=== PATIENT | female | born 1945 | race African-American/Black ===

== ENCOUNTER 2022-03-04 08:55 | Outpatient (CLI) | payer MEDICARE, BC, SELFPAY ==
[2022-03-04 11:02] LABS: Chloride* 104 mmol/L (96-114)
[2022-03-04 11:03] LABS: Potassium* 4.3 mmol/L (3.6-5.1); Sodium* 138 mmol/L (135-149)
[2022-03-04 11:05] LABS: Carbon Dioxide* 28 mmol/L (20-32); Cholesterol* 274 mg/dL (90-199); Creatinine* 0.9 mg/dL (0.5-1.5); Estimated Glomerular Filt Rate 66 ml/min
[2022-03-04 11:06] LABS: Blood Urea Nitrogen* 25 mg/dL (7-30); Calcium* 9.9 mg/dL (8.4-10.6); Glucose* 107 mg/dL (60-115); HDL Cholesterol* 87 mg/dL (>=50); LDL Cholesterol Calculated 164 mg/dL (<100); Triglycerides* 116 mg/dL (40-149)
[2022-03-04 11:22] LABS: Vitamin D 25 Hydroxy* 28 ng/mL (30-80)
== END 2022-03-04 08:56 | disposition home or self-care (01) ==
PROVIDERS: PCP Internal Medicine; Visit Provider Internal Medicine
DX: Z00.00 Encounter for general adult medical examination without abnormal findings (principal); I10 Essential (primary) hypertension; M85.80 Other specified disorders of bone density and structure, unspecified site; E78.5 Hyperlipidemia, unspecified; G47.00 Insomnia, unspecified
CPT/HCPCS: 80048; 80061; 82306

== ENCOUNTER 2022-03-27 08:11 | Outpatient (CLI) | payer MEDICARE, BC, SELFPAY ==
--- NOTE | 2022-03-27 08:00 | CRLHL7_ITS ---
For Patients: As a result of the Cures Act, medical imaging exams and procedure reports are released immediately into your electronic medical record. You may view this report before your referring provider. If you have questions, please contact your health care provider. Indication: Chronic sinusitis Technique: Performed without IV contrast Comparison: None available Findings: Frontal sinuses: Clear. Ethmoid sinuses: Clear. Maxillary sinuses: Clear. The maxillary sinus drainage pathways are patent on both sides. Sphenoid sinuses: Clear, including both sphenoethmoidal recesses. Nasal Cavity: Slight paradoxical turn of the left middle turbinates. Paradoxical turn of the right middle terminate. Slight leftward curvature of the nasal septum. No nasal polyps. Degenerative changes at the temporomandibular joints. Dense interhemispheric falx calcification incidentally noted. Impression: 1. Sinuses clear. 2. No nasal polyps. Please note that all CT scans at this facility use dose modulation, iterative reconstruction, and/or weight-based dosing when appropriate to reduce radiation dose to as low as reasonably achievable. Dictated by Edilberto Hanson MD @ 03/27/2022 12:04:54 PM (Electronically Signed)
== END 2022-03-27 08:12 | disposition home or self-care (01) ==
LOC: CT 08:13
PROVIDERS: PCP Internal Medicine; Visit Provider Otolaryngology
DX: J32.9 Chronic sinusitis, unspecified (principal)
CPT/HCPCS: 70486

== ENCOUNTER 2022-05-16 10:30 | Outpatient (CLI) | payer MEDICARE, BC, SELFPAY ==
[2022-05-16 11:59] LABS: Chloride* 101 mmol/L (96-114); Potassium* 4.4 mmol/L (3.6-5.1); Sodium* 138 mmol/L (135-149)
[2022-05-16 12:02] LABS: Blood Urea Nitrogen* 17 mg/dL (7-30); Carbon Dioxide* 29 mmol/L (20-32); Creatinine* 0.8 mg/dL (0.5-1.5); Estimated Glomerular Filt Rate 76 ml/min
[2022-05-16 12:03] LABS: Calcium* 10.3 mg/dL (8.4-10.6); Glucose* 111 mg/dL (60-115)
== END 2022-05-16 10:31 | disposition home or self-care (01) ==
LOC: NFLDREF 10:31
PROVIDERS: PCP Internal Medicine; Visit Provider Family Medicine
DX: Z01.818 Encounter for other preprocedural examination (principal)
CPT/HCPCS: 80048

== ENCOUNTER 2022-05-17 08:36 | Day surgery (SDC) | payer MEDICARE, BC, SELFPAY ==
[2022-05-16] MEDS: LACTATED RINGERS 1000 ML 1,000 ML 100 ML IV (09:15)
[2022-05-17] VITALS (13 sets, daily range): BP systolic 113–176; BP diastolic 75–98; PULSE 70–96; RESP 16; TEMP 36.3–36.7; O2SAT 96–100; BMI 28.3
[2022-05-17] MEDS: OXYMETAZOLINE 0.05% NASAL SPRAY 2 SPRAY NOSTRIL-B (09:15)
[2022-05-17] MEDS: SODIUM CHLORIDE 0.9 % (FLUSH) 10 ML SYRINGE IVF (09:15)
[2022-05-17] MEDS: COCAINE HCL 4 % 4 ML SOLUTION NOSTRIL-B (10:15)
[2022-05-17] MEDS: BUPIVACAINE 0.5%/EPINEPHRINE 0.9 MG (30.9 ML) INJECTION (10:20)
[2022-05-17] MEDS: MUPIROCIN 1 GM PACKET 1 APPLIC TOPICAL (10:21)
--- NOTE | 2022-05-17 10:33 | W.ANESCHARGE ---
Anesthesia Charges Start Date/Time Anesthesia Start Date: 05/17/22 Anesthesia Start Time: 10:00 Stop Date/Time Anesthesia Stop Date: 05/17/22 Anesthesia Stop Time: 10:35 Summary Emergency: No Extremes of Age: Over 70-CPT 21211
--- NOTE | 2022-05-17 10:34 | SUR.OPER ---
PT TRANSFERED TO OR1 FROM [facility]. PATIENT WAS ASSISTED TO TRANSFER TO OR TABLE. PATIENT WAS COVERED WITH WARM BLANKETS X 2
[2022-05-17] MEDS: fentaNYL 100 MCG/2 ML inj 50 MCG IVP ×2 (10:38→10:52)
--- NOTE | 2022-05-17 11:03 | W.ANESCHARGE ---
Anesthesia Charges Start Date/Time Anesthesia Start Date: 05/17/22 Anesthesia Start Time: 10:00 Stop Date/Time Anesthesia Stop Date: 05/17/22 Anesthesia Stop Time: 10:35 Summary Emergency: No Extremes of Age: Over 70-CPT 40450
[2022-05-17] MEDS: OXYCODONE 5 MG TABLET PO (11:42)
--- NOTE | 2022-05-17 12:22 | W.PM.ENTPROC ---
Procedure Note Date of procedure: 05/17/22 Procedure: Preoperative diagnosis nasal obstruction, nasal headache, septal deviation, left middle turbinate and right middle turbinate hypertrophy, inferior turbinate hypertrophy Postoperative diagnosis same Procedure nasal septoplasty, submucous partial resection inferior turbinates, endoscopic partial resection right middle turbinate Under general endotracheal anesthesia patient was prepped and draped in usual fashion and the nose injected and decongested. The septal deflection was left area 3 4. The 15 blade was used to make an incision in mucosa anterior to this and the mucosa overlying the deflection was elevated. The Ozark dissector was used to cut through the cartilage and the mucosa on the right side was elevated as well. A turbinate scissors was used to cut above and below the deflected portions of septal bone and cartilage this piece was then removed with the [place] forceps. It was then trimmed and returned to the intraseptal space. A stab incision was made in the anterior head of the right inferior turbinate a tunnel created with a Ozark dissector. A conservative anterior submucous resection was performed with Quiana forceps. The benita bone was outfractured and the turbinate Wand was used to cauterize intramurally and and along the inferior 10%. This was repeated on the left side in identical fashion. The left middle turbinate was incised with a 15 blade mucosa elevated with a Anjana dissector. The benita bone was then infractured and then the remainder of the turbinate crushed with the Tay forceps. A Merocel pack coated in Bactroban was placed overlying the septal incision on the left and in the middle meatus on the right. The patient procedure well was taken recovery in satisfactory condition. Blood loss was less than 20 mL. There were no complications. Surgeon: Roosevelt Springer MD
== END 2022-05-17 12:45 | disposition home or self-care (01) ==
PROVIDERS: PCP Internal Medicine; Visit Provider Otolaryngology
PROC: (CPT 30520; principal; 2022-05-17 10:00)
DX: J34.2 Deviated nasal septum (principal); J34.3 Hypertrophy of nasal turbinates; R51.9 Headache, unspecified; J34.89 Other specified disorders of nose and nasal sinuses
CPT/HCPCS: 30520; 30140; 30999; 00160; 99100; A9270; J0330; J1100; J2405; J2704; J3010; J7120

== ENCOUNTER 2022-06-03 15:22 | Outpatient (CLI) | payer MEDICARE, BC, SELFPAY ==
--- NOTE | 2022-06-03 15:20 | CRLHL7_ITS ---
For Patients: As a result of the Cures Act, medical imaging exams and procedure reports are released immediately into your electronic medical record. You may view this report before your referring provider. If you have questions, please contact your health care provider. BILATERAL SCREENING MAMMOGRAM WITH COMPUTER-AIDED DETECTION AND TOMOSYNTHESIS TECHNIQUE: CC and MLO views were obtained. These mammographic images have been obtained using full-field digital technique. These mammographic images were interpreted with the benefit of computer-aided detection. Breast Tomosynthesis was used in this interpretation. COMPARISON FILM: 11/09/2020, 09/05/2015, 09/30/2011. FINDINGS: There are scattered areas of fibroglandular density IMPRESSION: There is no radiographic evidence for malignancy. ASSESSMENT: BI-RADS Category 2: Benign RECOMMENDATION: A lay language report of this examination will be provided to the patient. Oni Rodriguez M.D. Diagnostic/Musculoskeletal Radiologist [email or web address] Transcribed: 5:09 p.raquel tellez/Dictated by: Oni Rodriguez MD @ 06/04/2022 8:13:00 AM (Electronically Signed)
== END 2022-06-03 15:23 | disposition home or self-care (01) ==
PROVIDERS: PCP Internal Medicine; Visit Provider Internal Medicine
DX: Z12.31 Encounter for screening mammogram for malignant neoplasm of breast (principal)
CPT/HCPCS: 77063; 77067

== ENCOUNTER 2023-04-22 07:43 | Outpatient (CLI) | payer MEDICARE, BC, SELFPAY | END 2023-04-22 07:44 | disposition home or self-care (01) | LOC: NFLDREF 04-23 01:43 | PROVIDERS: PCP Internal Medicine; Referring Provider Internal Medicine; Visit Provider Internal Medicine | DX: Z00.00 Encounter for general adult medical examination without abnormal findings (principal); E78.5 Hyperlipidemia, unspecified; I10 Essential (primary) hypertension; M85.80 Other specified disorders of bone density and structure, unspecified site; Z13.21 Encounter for screening for nutritional disorder; G47.00 Insomnia, unspecified; R41.3 Other amnesia | CPT/HCPCS: 80048; 80061; 82306 ==

== ENCOUNTER 2023-05-10 09:10 | Emergency (ER) | payer MEDICARE, BC, SELFPAY ==
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
[2023-05-10 09:20] VITALS: BP 125/82; PULSE 105; RESP 20; TEMP 36.1; O2SAT 99; BMI 25.8
[2023-05-10 09:31] VITALS: BP 136/86; PULSE 102; RESP 15; O2SAT 98
--- NOTE | 2023-05-10 09:31 | CRLHL7_ITS ---
For Patients: As a result of the Century Cures Act, medical imaging exams and procedure reports are released immediately into your electronic medical record. You may view this report before your referring provider. If you have questions, please contact your health care provider. INDICATION: Chest pain. SOB TECHNIQUE: Chest 2 views. COMPARISON: None. FINDINGS: Cardiovascular and mediastinum: Heart size and vasculature are normal in caliber and appearance. Lungs and pleural spaces: Lungs are clear. No sign of infiltrate. No sign of pleural effusion. No pneumothorax. Bones and soft tissues: Multilevel degenerative spondylosis. IMPRESSION: No evidence of acute cardiopulmonary process. Dictated by Sarwat Bui MD @ 05/10/2023 10:07:30 AM (Electronically Signed)
--- NOTE | 2023-05-10 09:46 | CRLHL7_ITS ---
For Patients: As a result of the Century Cures Act, medical imaging exams and procedure reports are released immediately into your electronic medical record. You may view this report before your referring provider. If you have questions, please contact your health care provider. INDICATION: Confusion. COMPARISON: None. TECHNIQUE: Noncontrast CT head. FINDINGS: Normal brain parenchymal morphology. No acute intracranial hemorrhage, acute infarct, focal edema, mass effect, or fracture. No midline shift. No abnormal ventricular dilatation. Calcification along the falx. Normal calvarium and skull base. Visualized paranasal sinuses mastoid air cells are clear. Normal orbits bilaterally. IMPRESSION: 1. No acute intracranial abnormality 2. Normal brain parenchymal morphology. Please note that all CT scans at this facility use dose modulation, iterative reconstruction, and/or weight-based dosing when appropriate to reduce radiation dose to as low as reasonably achievable. Dictated by Aleks Andrade MD @ 05/10/2023 10:43:42 AM (Electronically Signed)
[2023-05-10 09:50] LABS: Basophils Absolute Auto 0.03 K/uL (0.00-0.30); Basophils Percent Auto 0.5 % (0.0-3.0); Eosinophils Absolute Auto 0.15 K/uL (0.00-0.50); Eosinophils Percent Auto 2.5 % (0.0-7.0); Hematocrit 39.5 % (33.0-51.0); Hemoglobin* 12.9 gm/dL (12.0-16.0); Immature Granulocytes Abs Auto 0.02 K/uL (0.00-0.30); Immature Granulocytes Pct Auto 0.3 %; Lymphocytes Absolute Auto 1.74 K/uL (0.90-2.90); Lymphocytes Percent Auto 29.5 % (20-44); Mean Corpuscular HGB Conc 33 gm/dL (32-36); Mean Corpuscular Hemoglobin 29 pg (26-34); Mean Corpuscular Volume 87 fL (80-100); Monocytes Percent Auto 6.5 % (0.0-11.0); Neutrophils Absolute Auto 3.57 K/uL (1.7-7.0); Neutrophils Percent Auto 60.7 % (42.0-72.0); Platelet Count* 345 K/uL (140-440); RDW Coefficient of Variation % 13.4 % (11.5-15.5); Red Blood Count 4.52 m/uL (4.00-5.20); White Blood Count* 5.89 K/uL (4.50-11.00)
[2023-05-10 09:56] LABS: Slide Review Reflex No
[2023-05-10] MEDS: LACTATED RINGERS 1000 ML 1,000 ML IV (09:58)
[2023-05-10 10:00] VITALS: BP 137/84; PULSE 83; RESP 12; O2SAT 99
[2023-05-10 10:02] LABS: Albumin* 4.4 g/dL (3.3-5.0); Chloride* 104 mmol/L (96-114); Sodium* 140 mmol/L (135-149)
[2023-05-10 10:03] LABS: Potassium* 3.6 mmol/L (3.6-5.1)
[2023-05-10 10:05] LABS: Alanine Aminotransferase* 18 U/L (4-35); Alkaline Phosphatase* 109 U/L (40-150); Anion Gap 13 mEq/L (7-15); Aspartate Amino Transferase* 26 U/L (12-35); Bilirubin Total* 0.5 mg/dL (0.1-1.5); Blood Urea Nitrogen* 29 mg/dL (7-30); Carbon Dioxide* 23 mmol/L (20-32); Estimated Glomerular Filt Rate 58 ml/min; Glucose* 115 mg/dL (60-115)
[2023-05-10 10:06] LABS: Calcium* 10.2 mg/dL (8.4-10.6); Magnesium* 2.1 mg/dL (1.5-2.6)
[2023-05-10 10:07] LABS: D Dimer Quantitative* 0.92 ug/ml (0.00-0.50)
--- NOTE | 2023-05-10 10:10 | ED.NURSE ---
patient is having trouble with word finding and started today around 0800. Informed Dr. Mustafa of this and agreed patient expressed feeling foggy and feeling warm, sweaty, and dizziness. visitor in the room said this is new for patient.
--- NOTE | 2023-05-10 10:18 | CRLHL7_ITS ---
For Patients: As a result of the 21st Century Cures Act, medical imaging exams and procedure reports are released immediately into your electronic medical record. You may view this report before your referring provider. If you have questions, please contact your health care provider. INDICATION: SOB,CHEST PAIN, ELEVAED DDIMER HX OF BLOOD CLOT IN HER 20S TECHNIQUE: CT chest PE was acquired with 95 cc Isovue 370 IV contrast. COMPARISON: None. FINDINGS: Heart and vasculature: Contrast opacification of the pulmonary arterial tree is adequate. No sign of pulmonary embolism. Heart size is normal. Thoracic aorta and pulmonary artery are normal in caliber. Mild coronary artery and thoracic aortic calcifications. Lungs and pleural: No suspicious nodules or infiltrates. Mild centrilobular pulmonary emphysema. No pleural effusions, pleural thickening, or pneumothorax. Lymph nodes/mediastinum: No mediastinal, hilar, or axillary adenopathy. Calcified mediastinal lymph nodes. Chest wall: No masses. Upper abdomen: No acute or significant findings. Sequela calcified granulomata within the spleen and liver. Bones: Mild multilevel degenerative spondylosis without acute fracture or aggressive osseous lesion. IMPRESSION: 1. No evidence of acute cardiopulmonary process. No evidence of pulmonary embolus. 2. Mild pulmonary emphysema. 3. Mild coronary artery and thoracic aortic calcifications. Please note that all CT scans at this facility use dose modulation, iterative reconstruction, and/or weight-based dosing when appropriate to reduce radiation dose to as low as reasonably achievable. Dictated by Sawrat Bui MD @ 05/10/2023 11:01:59 AM (Electronically Signed)
[2023-05-10 10:19] LABS: Troponin I* < 0.01 ng/mL (0.01-0.04)
[2023-05-10 10:32] LABS: PCR FLU A Negative PCR FLU A (Negative); PCR FLU B Negative PCR FLU B (Negative); PCR RSV Negative PCR RSV (Negative); SARS PCR* Negative SARS-CoV-2 (Negative)
[2023-05-10 11:15] VITALS: BP 151/84; PULSE 79; RESP 14; O2SAT 100
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
[2023-05-10 11:30] VITALS: BP 146/89; PULSE 82; RESP 16; O2SAT 99
== END 2023-05-10 11:40 | disposition home or self-care (01) ==
PROVIDERS: Emergency Provider Student in an Organized Health Care Education/Training Program; PCP Internal Medicine
DX: M54.12 Radiculopathy, cervical region (principal); E86.0 Dehydration
CPT/HCPCS: 36415; 70450; 71046; 71275; 80053; 81001; 83735; 84484; 85025; 85379; 87631; 93005; 96360; 99283; 99284; 99285; J7120; Q9967

== ENCOUNTER 2023-09-01 10:06 | Outpatient (CLI) | payer MEDICARE, BC, SELFPAY ==
--- OUTSIDE RECORDS SUMMARY | 2023-09-01 10:12 | XMS_ITS | Clinical Summary ---
Author Name Unknown Organization [facility] Address [address] [place] [address] Care Team Providers Care Ed Teacher Name Role Phone Elsewhere, Pcp Primary Care Provider Unavailabl e Source Comments Patient records contain information from all sites at [facility]. For routine questions regarding patient records, call [phone] during business hours, M-F 8:00 AM - 5:00 PM Central Time. Record requests for emergency care only can be directed to [phone] at any time.[facility] Allergies No known active allergies Medications Medication Sig Dispensed Refills Start Date End Date Status zolpidem (AMBIEN) 5 mg tablet Take 5 mg by mouth as needed. 0 07/28/2020 Active lisinopril-hydroCHLORO thiazide (PRINZIDE,ZESTORETIC) 20-12.5 mg per tablet Take 1 tablet by mouth daily. 0 07/29/2020 Active ciprofloxacin (CIPRO) 500 mg tablet Take 500 mg by mouth as needed. 0 07/28/2020 Active atorvastatin (LIPITOR) 20 mg tablet Take 20 mg by mouth daily. 0 07/29/2020 Active UNABLE TO FIND 2 (two) times a day. 0 03/01/2016 Active calcium carbonate-vitamin D3 1,250 mg (500 mg calcium)-5 mcg (200 Unit) per tablet Take 1 tablet by mouth daily with breakfast. 0 Active cetirizine (ZyrTEC) 10 mg tablet Take 10 mg by mouth as needed. 0 03/21/2022 Active Active Problems Problem Noted Date Diagnosed Date Polyp Colon 09/12/2020 Embolus Pulmonary Personal History 02/19/2016 Immunizations Name Administration Dates Next Due HZV (ZOSTAVAX) 10/07/2011 HepA / HepB 04/12/2003,03/15/2003 HepA Adult 06/21/2010 HepB Adult 06/21/2010 IPV 03/15/2003,03/12/2003 Influenza Split 07/10/2016, 5,05/02/2014,2012 MPSV4 06/21/2010,04/12/2003 PCV13 07/10/2016 PPSV23 09/30/2011 SARS-COV-2 (COVID-19) - PFIZ ER (12 years or older) 09/29/2020 Tdap 05/11/2012,06/21/2010 TyVi (inj) 10/31/2016,06/25/2013,06/21/2010 Typhoid, Unspecified 03/15/2003 YF 06/25/2013,03/15/2003 Family History Medical History Relation Name Comments Alcohol abuse Brother Ammon Welch Liver disease Brother Ammon Welch Depression Daughter Hannah Latif Other cancer Daughter Hannah Latif Abdominal Rapto Sarcoma Psychiatric Daughter Hannah Latif Bi-Polar a nd granddaughters Bi-polar Suicide Attempts Daughter Hannah Latif Grands on Hossein Latif Liver disease Father Elmer Welch Arthritis Maternal Grandfather Tiffanie Hernandez Depression Maternal Grandmother Tiffanie Pierre Many family members suffer with chronic depression Glaucoma Maternal Grandmother Tiffanie Pierre Liver disease Mother Isatu Garner Lung cancer Mother Isatu Garner Liver Coronary artery disease Mother's Brother 1 [facility] Alcohol abuse Mother's Brother 2 Pierresteve Mary Coronary artery disease Paternal Grandfather Ron Hernandez Depression Sister Malinda Welch Psychiatric Sister Malinda Welch Bi-Polar/ Paran oid Schiphrenia Suicide Attempts Sister Malidna Welch Macular degeneration Neg Hx Relation Name Status Comments Brother Ammon Welch Daughter Hannah Latif Father Elmer Welch Maternal Grandfather Tiffanie Hernandez Maternal Grandmother Tiffanie Ignacio Mother Isatu Garner Mother's Brother 1 Wheatleymilly Hernandez Mother's Brother 2 Edsteve Hernandez Paternal Grandfather Pierresteve Mary Sister Malinda Welch Social History Tobacco Use Types Packs/Day Years Used Date Smoking Tobacco: Never Passive Smoke Exposure: Never Smokeless Tobacco: Never Alcohol Use Standard Drinks/Week Comments Yes 3 (1 standard drink = 0.6 oz pur e alcohol) 2 wine per week Humiliation, Afraid, Rape, and Kick questionnair e Answer Date Recorded Fear of Current or Ex-Partner Not on file Within the last year, have y ou been humiliated or emotionally abused in other ways by your partner or ex-partner? No 04/04/2022 Within the last year, have y ou been kicked, hit, slapped, or otherwise physically hurt by your partner or ex-partner? No 04/04/2022 Within the last year, have y ou been raped or forced to have any kind of sexual activity by your partner or ex-partner? No 04/04/2022 Social Connection and Isolat ion Panel [NHANES] Answer Date Recorded In a typical week, how many times do you talk on the phone with family, friends, or neighbors? More than three times a week 04/04/2022 How often do you get togethe r with friends or relatives? More than three times a week 04/04/2022 How often do you attend chur or jew services? 1 to 4 times per year 04/04/2022 Do you belong to any clubs o r organizations such as methodist groups, unions, fraternal or athletic groups, or school groups? No 04/04/2022 How often do you attend meet ings of the clubs or organizations you belong to? Never 04/04/2022 Are you , , di vorced, , never , or living with a partner? 04/04/2022 AUDIT-C Answer Date Recorded Q1: How often do you have a drink containing alc ohol? 2-4 times a month 04/04/2022 Q2: How many drinks containi ng alcohol do you have on a typical day when you are drinking? 1 or 2 04/04/2022 Q3: How often do you have si x or more drinks on one occasion? Never 04/04/2022 Overall Financial Resource Strain (CARDIA) Answe r Date Recorded How hard is it for you to pa y for the very basics like food, housing, medical care, and heating? Not very hard 04/04/2022 PHQ-2 Answer Date Recorded PHQ-2 Score 2 04/10/2022 [facility] - Occupational Stress Questionnaire Answer Date Recorded Do you feel stress - tense, restless, nervous, or anxious, or unable to sleep at night because your mind is troubled all the time - these days? Rather much 08/18/2020 Exercise Vital Sign Answer Date Recorde d On average, how many days pe r week do you engage in moderate to strenuous exercise (like a brisk walk)? 4 days 04/04/2022 On average, how many minutes do you engage in exercise at this level? 120 min 04/04/2022 Hunger Vital Sign Answer Date Recorded Within the past 12 months, y ou worried that your food would run out before you got the money to buy more. Never true 04/04/20 Within the past 12 months, t he food you bought just didn't last and you didn't have money to get more. Never true 04/04/2022 PRAPARE - Transportation Answer Date Re corded In the past 12 months, has l ack of transportation kept you from medical appointments or from getting medications? No 03/12 In the past 12 months, has l ack of transportation kept you from meetings, work, or from getting things needed for daily living? No 04/04/2022 Housing Stability Vital Sign Answer Chuy e Recorded In the last 12 months, was t here a time when you were not able to pay the mortgage or rent on time? No 04/04/2022 In the last 12 months, how many places have you lived? 1 04/04/2022 In the last 12 months, was t here a time when you did not have a steady place to sleep or slept in a residential (including now)? No 04/04/2022 Depression Answer Date Recor ded PHQ-9 Total Score (max 27) 9 04/10 Nutrition Answer Date Recorded Nutrition: EVOO Fat Source Yes 08/26 Nutrition: Servings of Fruits/Vegetables per Day Not on file 08/26/2023 Dental Answer Date Recorded Dental: Regular Dentist Yes 04/04/20 Employment Answer Date Recorded Employment status Employed and actively working without restrictions 04/04/2022 Education Answer Date Recorded What is the highest level of school you have completed or the highest degree you have received? Master's degree (e.g., MA, MS, Rian, MEd, KILN PULLER, RONALD) 04/04/2022 Sex and Gender Information Value Date Recorded Sex Assigned at Female 04/08/2021 11:57 PM CDT Gender Identity Not on file Sexual Orientation Not on file Last Filed Vital Signs Vital Sign Reading Time Taken Comments Blood Pressure 161/84 09/15/2020 3:50 PM REPTILE FARMER Pulse 81 09/15/2020 3:50 PM REPTILE FARMER Temperature 36.2 ??C (97.2 ??F) 04/10/2022 9:04 AM CD T Respiratory Rate 14 09/15/2020 3:50 PM REPTILE FARMER Oxygen Saturation 96% 09/15/2020 3:50 PM REPTILE FARMER Inhaled Oxygen Concentration - - Weight 80.4 kg (177 lb 4 oz) 04/10/2022 9:04 AM CDT Height 170.4 cm (5' 7.09) 04/10/2022 9:04 AM CD T Body Mass Index 27.69 04/10/2022 9:04 AM CDT Plan of Treatment Health Maintenance Due Date Last Done Comments Zoster Vaccines (2 of 3) 12/02/2011 10/07/2011 Creatinine Level (Kidney Fun ction Test) 09/12/2021 09/12/2020, 03/01/2016, 02/29/2016, Additional history exists Potassium Level 09/12/2021 09/12/2020, 02/09, 02/29/2016, Additional history exists Sodium Level 09/12/2021 09/12/2020, 02/09, 02/29/2016, Additional history exists COVID-19 Vaccine (2022-2 4 season) 2023 04/27/2022, 11/13/2021, 11/13/2021, Additional history exists Depression Screening (Annual PHQ-2) 08/11/2023 Fall Risk Screen (Annual) 08/11/2023 DTaP,Tdap,and Td Vaccines (4 - Td or Tdap) 04/29/2033 04/29/2023, 05/11/2012, 06/21/2010 Hepatitis A Vaccines Completed 06/21/2010, 04/12/2003, 03/15/2003 Mammogram Discontinued 09/05/2015, 09/12, 09/17/2010, Additional history exists Pneumococcal vaccine (65+ years) Completed 07/10/20 16, 09/30/2011 Hepatitis B Vaccines Completed 10/25/2016, 06/21/2010, 04/12/2003, Additional history exists Colonoscopy Discontinued 09/15/2020, 12/2020, 04/26/2014 (Performed elsewhere), Additional history exists Colonoscopy Discontinued 09/15/2020, 12/2020, 04/26/2014 (Performed elsewhere), Additional history exists Colorectal Cancer Screening Discontinued Colorectal Cancer Surveillance Discontinued Influenza Vaccine Completed 04/15/2023, , 05/05/2021, Additional history exists CT Colonography Discontinued CT Colonography Discontinued Cologuard Discontinued FIT Discontinued Medical Devices Implanted Type Area Director Of Regional Sales Device Identifier Shelf Expiration Date Model / Serial / Lot Sigma Post Stab.W Lug Fem Sz 4 Rt - Juarez [id number] Implanted:Qty: 1 on 02/27/2016 Knee Implant Other/Legacy - See Implant Description [employer] Description:Device Manufactu rer - [employer]. Body Location - Other. Right. Device Status Text - KNEE [id number]. Lens Sergey 24.0d X 6.0mm - Juarez [id number] Implanted:Qty: 1 on 12/03/2013 Ocular Lens Right: Other/Legacy - See Implant Description [employer] Description:Device Manufactu rer - [employer]. Body Location - Right. Device Status Text - [id number]. Lens Sergey 24.0d X 6.0mm - Juarez [id number] Implanted:Qty: 1 on 12/31/2013 Ocular Lens Left: Other/Legacy - See Implant Description [employer] Description:Device Manufactu rer - [employer]. Body Location - Left. Device Status Text - [id number]. Care Teams Ed Teacher Relationship Specialty Start Date End Date Elsewhere, Pcp PCP - General Internal Medicine 01/28/23
--- OUTSIDE RECORDS SUMMARY | 2023-09-01 10:12 | XMS_ITS | Referral Summary ---
Author Name Unknown Organization [facility] Address [address] [place] [address] Care Team Providers Care Title Searcher Name Role Phone Elsewhere, Pcp Primary Care Provider Unavailabl e Source Comments Patient records contain information from all sites at [facility]. For routine questions regarding patient records, call [phone] during business hours, M-F 8:00 AM - 5:00 PM Central Time. Record requests for emergency care only can be directed to [phone] at any time.[facility] Allergies No known active allergies Medications Medication [...] (inj) 10/31/2016,06/25/2013,06/21/2010 Typhoid, Unspecified 03/15/2003 YF 06/25/2013,03/15/2003 Social History Tobacco Use Types Packs/Day Years [...] week 04/04/2022 How often do you attend [facility] or jew services? 1 to 4 times per year 04/04/2022 Do you belong to any clubs o r organizations such as jainism groups, unions, fraternal or athletic groups, or [...] Answer Date Recorded PHQ-2 Score 2 04/10/2022 [facility] - Occupational Stress [...] money to buy more. Never true 04/04/20 22 Within the past 12 months, t he [...] place to sleep or slept in a custodial (including now)? No 04/04/2022 Depression Answer Date [...] Master's degree (e.g., MA, MS, Rian, MEd, MACHINIST WOOD, RONALD) 04/04/2022 Sex and Gender Information Value Date Recorded Sex Assigned at Female 04/08/2021 11:57 PM CDT Gender Identity Not on file Sexual Orientation Not on file Last Filed Vital Signs Vital Sign Reading Time Taken Comments Blood Pressure 161/84 09/15/2020 3:50 PM VENEER GLUE SPREADER Pulse 81 09/15/2020 3:50 PM VENEER GLUE SPREADER Temperature 36.2 ??C (97.2 ??F) 04/10/2022 9:04 AM CD T Respiratory Rate 14 09/15/2020 3:50 PM VENEER GLUE SPREADER Oxygen Saturation 96% 09/15/2020 3:50 PM VENEER GLUE SPREADER Inhaled Oxygen Concentration - - Weight 80.4 kg (177 lb 4 oz) 04/10/2022 9:04 AM CDT Height 170.4 cm (5' 7.09) 04/10/2022 9:04 AM CD T Body Mass Index 27.69 04/10/2022 9:04 AM CDT Plan of Treatment Not on file Medical Devices Implanted Type Area Ecommerce Marketing Specialist Device Identifier Shelf Expiration Date Model / Serial / Lot Sigma Post Stab.W Lug Fem Sz 4 Rt - Juarez [id number] Implanted:Qty: 1 on 02/27/2016 Knee Implant Other/Legacy - See Implant Description [employer] Description:Device Manufactu rer - [employer]. Body Location - Other. Right. Device Status Text - KNEE [id number]. Lens Sergey 24.0d X 6.0mm - Juarez [id number] Implanted:Qty: 1 on 12/03/2013 Ocular Lens Right: Other/Legacy - See Implant Description [employer] Description:Device Manufactu rer - [employer]. Body Location - Right. Device Status Text - [id number]. Lens Sergey 24.0d X 6.0mm - Juarez [id number] Implanted:Qty: 1 on 12/31/2013 Ocular Lens Left: Other/Legacy - See Implant Description [employer] Description:Device Manufactu rer - [employer]. Body Location - Left. Device Status Text - [id number]. Care Teams Title Searcher Relationship Specialty Start Date End Date Elsewhere, Pcp PCP - General Internal Medicine 01/28/23
--- OUTSIDE RECORDS SUMMARY | 2023-09-01 10:13 | XMS_ITS | Encounter Summary ---
Author Name Unknown Organization [facility] Address [address] [place] [id number] Care Team Providers Care Social Work Nurse Name Role Phone Elsewhere, Pcp Primary Care Provider Unavailabl e Encounter Details Date Type Department Care Team (Late st Contact Info) Description 11/12/2013 Historical Ophthalmology RST OPH Chidi Huerta M.D. [address] [place] [phone] Social History Tobacco Use Types Packs/Day Years Used Date Smoking Tobacco: Never Assessed Sex and Gender Information Value Date Recorded Sex Assigned at Female 04/08/2021 11:57 PM CDT Gender Identity Not on file Sexual Orientation Not on file documented as of this encounter Progress Notes * Chidi Huerta M.D. - 11/12/2013 12:55 PM CDT Eye Subsequent Visit HISTORY OF PRESENT ILLNESS here for IOL scan CDM Reports - EYESV Id: [id number] Status: Fnl documented in this encounter Plan of Treatment Not on file documented as of this encounter Visit Diagnoses Not on filedocumented in this encounter Additional Health Concerns Infection Onset Date Last Indicated Resolved Time COVID19 Pending 09/12/2020 09/12/2020 09/12/2020 7 :16 PM CORE DRILL OPERATOR COVID19 Pending 04/17/2022 04/17/2022 04/17/2022 6 :46 PM CDT Assessment Noted Time PHQ-9 Depression Total Score: 7 09/07/19 10 7:05 AM CORE DRILL OPERATOR documented as of this encounter Care Teams Social Work Nurse Relationship Specialty Start Date End Date Elsewhere, Pcp PCP - General Internal Medicine 01/28/23 documented as of this encounter
--- OUTSIDE RECORDS SUMMARY | 2023-09-01 10:13 | XMS_ITS | Encounter Summary ---
Author Name Unknown Organization [facility] Address [address] [place] [address] Care Team Providers Care Ritual Circumciser Name Role Phone Elsewhere, Pcp Primary Care Provider Unavailabl e Encounter Details Date Type Department Care Team (Late st Contact Info) Description 11/08/2013 Historical Ophthalmology RST O[facility] Chidi Huerta M.D. [address] [place] [phone] Social History Tobacco Use Types Packs/Day Years Used Date Smoking Tobacco: Never Assessed Sex and Gender Information Value Date Recorded Sex Assigned at Female 04/08/2021 11:57 PM CDT Gender Identity Not on file Sexual Orientation Not on file documented as of this encounter Progress Notes * Chidi Huerta M.D. - 11/08/2013 8:14 AM CDT Eye General CHIEF COMPLAINT Tearing ; both eyes; constant x one year; cloudy vision at night ; both eyes; noted x 1-2 years HISTORY OF PRESENT ILLNESS Tearing ; both eyes; constant x one year. Cloudy vision at night ; both eyes; noted x 1-2 years. Episodes of conjunctival hemorrhage ; either eye; noted x three years. May note soreness (left eye) currently. Denies flashes (both eyes). 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 States intermittent headaches; she may relate to sinus. IMPRESSION / REPORT / PLAN #1 cataracts visually significant. RBA RIGHT cataract surgery discussed, pt wishes to proceed. get iols, target plano. #2 refractive error rx given #3 history subconjunctival hemorrhages no rx DIAGNOSIS #1 cataracts #2 refractive error #3 history subconjunctival hemorrhages CDM Reports - EYEGEN Id: [id number] Status: Fnl documented in this encounter Plan of Treatment Not on file documented as of this encounter Visit Diagnoses Not on filedocumented in this encounter Additional Health Concerns Infection Onset Date Last Indicated Resolved Time COVID19 Pending 09/12/2020 09/12/2020 09/12/2020 7 :16 PM TARE WEIGHER COVID19 Pending 04/17/2022 04/17/2022 04/17/2022 6 :46 PM CDT Assessment Noted Time PHQ-9 Depression Total Score: 7 09/07/19 10 7:05 AM TARE WEIGHER documented as of this encounter Care Teams Ritual Circumciser Relationship Specialty Start Date End Date Elsewhere, Pcp PCP - General Internal Medicine 01/28/23 documented as of this encounter
--- OUTSIDE RECORDS SUMMARY | 2023-09-01 10:13 | XMS_ITS | Encounter Summary ---
Author Name Unknown Organization [facility] Address [address] [place] [id number] Care Team Providers Care Household Assistant Name Role Phone Elsewhere, Pcp Primary Care Provider Unavailabl e Reason for Visit * Reason Onset Date Comments Pre-visit Intake 01/28/2023 Encounter Details Date Type Department Care Team (Latest Contact Info) Description 01/28/2023 9:15 AM CDT Clinical Communication Virtual Review in [place], [place] [address] [place], [place] [phone] Pre-visit Intake Social History Tobacco Use Types Packs/Day Years [...] 04/04/2022 How often do you attend chur ch or anglican services? 1 to 4 times per year 04/04/2022 Do you belong to any clubs o r organizations such as congregational groups, unions, fraternal or athletic groups, or [...] Answer Date Recorded PHQ-2 Score 2 04/10/2022 [facility] - Occupational Stress [...] place to sleep or slept in a usp (including now)? No 04/04/2022 Depression Answer Date Recor ded PHQ-9 Total Score (max 27) 9 04/10 Nutrition Answer Date Recorded Nutrition: EVOO Fat Source Yes 08/18 On average, how many serving s of fruits and vegetables do you eat per day (serving size is equal to 1 cup or approximately the size of a tennis ball)? 4-5 08/18/2020 Dental Answer Date Recorded Dental: Regular Dentist Yes 04/04/20 Employment Answer Date Recorded Employment status Employed and actively working without restrictions 04/04/2022 Education Answer Date Recorded What is the highest level of school you have completed or the highest degree you have received? Master's degree (e.g., MA, MS, Rian, MEd, APPAREL FASHION DESIGNER, RONALD) 04/04/2022 Sex and Gender Information Value Date Recorded Sex Assigned at Female 04/08/2021 11:57 PM CDT Gender Identity Not on file Sexual Orientation Not on file documented as of this encounter Plan of Treatment Not on file documented as of this encounter Visit Diagnoses Not on filedocumented in this encounter Additional Health Concerns Assessment Noted Time PHQ-9 Depression Total Score: 9 04/10/20 22 11:39 AM CDT documented as of this encounter Care Teams Household Assistant Relationship Specialty Start Date End Date Elsewhere, Pcp PCP - General Internal Medicine 01/28/23 documented as of this encounter
--- OUTSIDE RECORDS SUMMARY | 2023-09-01 10:13 | XMS_ITS | Encounter Summary ---
Author Name Unknown Organization [facility] Address [address] [place] [address] Care Team Providers Care Straight Knife Cutter Machine Name Role Phone Elsewhere, Pcp Primary Care Provider Unavailabl e Encounter Details Date Type Department Care Team (Late st Contact Info) Description 11/08/2013 Historical Ophthalmology RST OPH [place] [address] [place] [phone] Social History Tobacco Use Types Packs/Day Years Used Date Smoking Tobacco: Never Assessed Sex and Gender Information Value Date Recorded Sex Assigned at Female 04/08/2021 11:57 PM CDT Gender Identity Not on file Sexual Orientation Not on file documented as of this encounter Progress Notes * Lay Wells - 11/08/2013 9:27 AM CDT Eye Subsequent Visit HISTORY OF PRESENT ILLNESS Cataract surgery right eye December [address] Huerta CDM Reports - EYESV Id: [id number] Status: Fnl documented in this encounter Plan of Treatment Not on file documented as of this encounter Visit Diagnoses Not on filedocumented in this encounter Additional Health Concerns Infection Onset Date Last Indicated Resolved Time COVID19 Pending 09/12/2020 09/12/2020 09/12/2020 7 :16 PM MITER GRINDER OPERATOR COVID19 Pending 04/17/2022 04/17/2022 04/17/2022 6 :46 PM CDT Assessment Noted Time PHQ-9 Depression Total Score: 7 09/07/19 10 7:05 AM MITER GRINDER OPERATOR documented as of this encounter Care Teams Straight Knife Cutter Machine Relationship Specialty Start Date End Date Elsewhere, Pcp PCP - General Internal Medicine 01/28/23 documented as of this encounter
--- OUTSIDE RECORDS SUMMARY | 2023-09-01 10:13 | XMS_ITS | Encounter Summary ---
Author Name Unknown Organization [facility] Address [address] [place] [address] Care Team Providers Care Consignee Name Role Phone Elsewhere, Pcp Primary Care Provider Unavailabl e Encounter Details Date Type Department Care Team (Late st Contact Info) Description 12/29/2013 Historical Ophthalmology RST OPH Jeremiah Tate, C.O.A. [address] [place] [phone] Social History Tobacco Use Types Packs/Day Years Used Date Smoking Tobacco: Never Assessed Sex and Gender Information Value Date Recorded Sex Assigned at Female 04/08/2021 11:57 PM CDT Gender Identity Not on file Sexual Orientation Not on file documented as of this encounter Progress Notes * Jeremiah Tate, C.O.A. - 12/29/2013 9:30 AM CDT Eye Subsequent Visit HISTORY OF PRESENT ILLNESS Listing for cataract surgery, left eye on 12/31/[address] Huerta. Patient will call for report time. cell Home: CDM Reports - EYESV Id: [id number] Status: Fnl documented in this encounter Plan of Treatment Not on file documented as of this encounter Visit Diagnoses Not on filedocumented in this encounter Additional Health Concerns Infection Onset Date Last Indicated Resolved Time COVID19 Pending 09/12/2020 09/12/2020 09/12/2020 7 :16 PM BIOINFORMATICS ENGINEER COVID19 Pending 04/17/2022 04/17/2022 04/17/2022 6 :46 PM CDT Assessment Noted Time PHQ-9 Depression Total Score: 7 09/07/19 10 7:05 AM BIOINFORMATICS ENGINEER documented as of this encounter Care Teams Consignee Relationship Specialty Start Date End Date Elsewhere, Pcp PCP - General Internal Medicine 01/28/23 documented as of this encounter
--- OUTSIDE RECORDS SUMMARY | 2023-09-01 10:13 | XMS_ITS | Clinical Summary ---
Author Name Unknown Organization [facility] Address [place], [place] [address] Care Team Providers Care Reed Dipper Name Role Phone CadillacRaymarcus Primary Care Provider Unavail able Allergies Active Allergy Reactions Criticality Noted Date Comments Penicillins 10/13/2010 Medications Medication Sig Dispensed Refills Start Date End Date Status ibuprofen (ADVIL; MOTRIN) 600 mg tablet Take 1 tablet by mouth 4 times daily if needed. Maximum of 3200 mg in 24 hours. 30 tablet 0 03/25/2014 Active zolpidem (AMBIEN) 5 mg tablet Take 1 tablet by mouth at bedtime if needed for Sleep. 30 tablet 0 03/25/2014 Active HYDROcodone-acetam inophen, 5-325 mg, (NORCO) per tablet Take 1-2 tablets by mouth every 4 hours if needed for Pain. Max acetaminophen dose: 4000mg in 24 hrs. 30 tablet 0 07/01/2014 Active ciprofloxacin (CIPRO) 500 mg tablet Can take for 2-3 days as needed for travelers diarrhea 20 tablet 0 07/01/2014 Active zolpidem (AMBIEN) 5 mg tablet Take 1 tablet by mouth at bedtime if needed for Sleep. 30 tablet 0 07/01/2014 Active escitalopram oxalate (LEXAPRO) 5 mg tablet Take 1 tablet by mouth once daily. 30 tablet 2 07/01/2014 Active codeine-guaiFENesi n (GUAIFENESIN AC) 10-100 mg/5 mL liquid Take 5 mL by mouth every 4 hours if needed for Cough. Max dose 60 mL per 24 hrs. 240 mL 0 07/28/2014 Active Active Problems Problem Noted Date Diagnosed Date Knee osteoarthritis 07/01/2014 Diverticulosis of colon (without mention of hemo rrhage) 04/26/2014 Overview: Colonoscopy 04/2014 severe diverticuli, no follow up needed Fibromyalgia 01/05/2014 S/P bilateral breast reduction 08/20/2012 Dysthymia 02/24/2012 Resolved Problems Problem Noted Date Diagnosed Date Resolved Date UTI (lower urinary tract infection) 04/09/2012 09/07/2013 Immunizations Name Administration Dates Next Due HepA-HepB (Twinrix) 04/12/2003,03/15/2003 Hepatitis A (Adult) 06/21/2010 Hepatitis B (Adult) 06/21/2010 Inactivated Polio Vaccine 03/12/2003 Influenza A (H1N1), Inactivated 06/15/2009 Influenza Virus, Unspecified 05/11/2014 Influenza, IIV3 (Age >=3 years) 06/11/2011,06/30 Meningococcal Vaccine 06/21/2010,04/12/2003 Pneumococcal Poly,23-Valent (Pneumovax) 09/30/19 12 Tdap 05/11/2012,06/21/2010 Typhoid (injectable) 06/25/2013,06/21/2010,03/12 Yellow Fever 06/25/2013,03/12/2003 Zoster (Zostavax-ZVL, live) 10/07/2011 Social History Tobacco Use Types Packs/Day Years Used Date Smoking Tobacco: Former Smokeless Tobacco: Never Tobacco Cessation:Counseling Given: Yes Comments:20-25 years ago Alcohol Use Standard Drinks/Week Comments Yes 0 (1 standard drink = 0.6 oz pur e alcohol) occ wine Sex and Gender Information Value Date Recorded Sex Assigned at Not on file Gender Identity Not on file Sexual Orientation Not on file Obstetrics History Last Filed Vital Signs Vital Sign Reading Time Taken Comments Blood Pressure 159/84 07/28/2014 5:41 PM DIRECT CARE COUNSELOR Pulse 90 07/28/2014 5:41 PM DIRECT CARE COUNSELOR Temperature 37 ??C (98.6 ??F) 07/28/2014 5:41 PM DIRECT CARE COUNSELOR Respiratory Rate - - Oxygen Saturation 98% 07/28/2014 5:41 PM DIRECT CARE COUNSELOR Inhaled Oxygen Concentration - - Weight 78.9 kg (174 lb) 07/28/2014 5:41 PM DIRECT CARE COUNSELOR Height 168.9 cm (5' 6.5) 07/04/2014 11:39 AM CS T Body Mass Index 27.67 07/04/2014 11:39 AM DIRECT CARE COUNSELOR Plan of Treatment Health Maintenance Due Date Last Done Comments COVID-19 vaccine series (#1) 06/23/1946 Depression screening for age 12+ 1957 BMI (ht and wt on same day) for age 18+ 12/22/1963 Hepatitis C screening for ag e 18-79 12/22/1963 DEXA/DXA scan for age 65+ 2010 Zoster (shingles) series for age 50+ (2 of 3) 12/02/2011 10/07/2011 Pneumococcal series for age 65+ (2 of 2 - PCV) 09/30/2012 09/30/2011 Tetanus booster 05/11/2022 05/11/2012, 06/21/2010 Influenza for age 65+ 04/11/2023 05/11/2014 , 06/11/2011, 06/30/2010, Additional history exists Tdap Completed 05/11/2012, 06/21/2010 Care Teams Reed Dipper Relationship Specialty Start Date End Date Yeimy Mclaughlin PCP - General 06/05/16
--- OUTSIDE RECORDS SUMMARY | 2023-09-01 10:13 | XMS_ITS | Encounter Summary ---
Author Name Unknown Organization [facility] Address [address] [place] [address] Care Team Providers Care Assembler Fluorescent Lights Name Role Phone Elsewhere, Pcp Primary Care Provider Unavailabl e Encounter Details Date Type Department Care Team (Late st Contact Info) Description 09/26/2010 Historical Ophthalmology RST OPH Washington Collier O.D., Ph.D. Social History Tobacco Use Types Packs/Day Years Used Date Smoking Tobacco: Never Assessed Sex and Gender Information Value Date Recorded Sex Assigned at Female 04/08/2021 11:57 PM CDT Gender Identity Not on file Sexual Orientation Not on file documented as of this encounter Progress Notes * Washington Collier O.D., Ph.D. - 09/26/2010 7:53 AM CST Eye General CHIEF COMPLAINT left eye pain HISTORY OF PRESENT ILLNESS Pain; behind left eye ; x 1 year; intermittently; symptoms reported at level of 3/10, lasting 5 minutes. No noted vision changes. Using only over the counter readers for computer and near work. Denies floaters, flashes, or diplopia. IMPRESSION / REPORT / PLAN #1 Headache behind eye Could be migraine related; possibly related to eye strain from uncorrected hyperopia; no other ocular reasons seen. #2 Cataract, not visually significant Monitor #3 Refractive error (hyperopic astigmatism, presbyopia) Rx #2 given. DIAGNOSIS #1 Headache behind eye #2 Cataract, not visually significant #3 Refractive error (hyperopic astigmatism, presbyopia) [facility] Reports - EYEGEN Id: [id number] Status: Fnl documented in this encounter Plan of Treatment Not on file documented as of this encounter Visit Diagnoses Not on filedocumented in this encounter Additional Health Concerns Infection Onset Date Last Indicated Resolved Time COVID19 Pending 09/12/2020 09/12/2020 09/12/2020 7 :16 PM POLICY DIRECTOR COVID19 Pending 04/17/2022 04/17/2022 04/17/2022 6 :46 PM CDT Assessment Noted Time PHQ-9 Depression Total Score: 7 09/07/19 10 7:05 AM POLICY DIRECTOR documented as of this encounter Care Teams Assembler Fluorescent Lights Relationship Specialty Start Date End Date Elsewhere, Pcp PCP - General Internal Medicine 01/28/23 documented as of this encounter
--- OUTSIDE RECORDS SUMMARY | 2023-09-01 10:13 | XMS_ITS | Encounter Summary ---
Author Name Unknown Organization [facility] Address [address] [place] [address] Care Team Providers Care Commercial Pilot Name Role Phone Elsewhere, Pcp Primary Care Provider Unavailabl e Encounter Details Date Type Department Care Team (Late st Contact Info) Description 12/31/2013 Historical Ophthalmology RST OPH Chidi Huerta M.D. [address] [place] [phone] Social History Tobacco Use Types Packs/Day Years Used Date Smoking Tobacco: Never Assessed Sex and Gender Information Value Date Recorded Sex Assigned at Female 04/08/2021 11:57 PM CDT Gender Identity Not on file Sexual Orientation Not on file documented as of this encounter Progress Notes * Chidi Huerta M.D. - 12/31/2013 9:31 AM CDT Eye Postoperative MULTI-VISIT DOCUMENT This document contains multiple patient visits and is available for review in Document Viewer. CDM Reports - EYEPO Id: [id number] Status: Fnl documented in this encounter Plan of Treatment Not on file documented as of this encounter Visit Diagnoses Not on filedocumented in this encounter Additional Health Concerns Infection Onset Date Last Indicated Resolved Time COVID19 Pending 09/12/2020 09/12/2020 09/12/2020 7 :16 PM FLUID JET CUTTER OPERATOR COVID19 Pending 04/17/2022 04/17/2022 04/17/2022 6 :46 PM CDT Assessment Noted Time PHQ-9 Depression Total Score: 7 09/07/19 10 7:05 AM FLUID JET CUTTER OPERATOR documented as of this encounter Care Teams Commercial Pilot Relationship Specialty Start Date End Date Elsewhere, Pcp PCP - General Internal Medicine 01/28/23 documented as of this encounter
--- OUTSIDE RECORDS SUMMARY | 2023-09-01 10:13 | XMS_ITS ---
Author Name Unknown Organization [facility] Address [address] [place] [address] Care Team Providers Care Marketing Technology Specialist Name Role Phone Unavailable Unavailable Unavailable Surgery Details Not on file Complications Check Surgery Details section. Procedure Estimated Blood Loss Check Surgery Details section. Procedure Findings Check Surgery Details section. Procedure Specimens Taken Check Surgery Details section.
--- OUTSIDE RECORDS SUMMARY | 2023-09-01 10:13 | XMS_ITS | Encounter Summary ---
Author Name Unknown Organization [facility] Address [address] [place] [id number] Care Team Providers Care Extender Name Role Phone Elsewhere, Pcp Primary Care Provider Unavailabl e Encounter Details Date Type Department Care Team (Late st Contact Info) Description 12/29/2013 Historical Ophthalmology RST OPH Chidi Huerta M.D. [address] [place] [phone] Social History Tobacco Use Types Packs/Day Years Used Date Smoking Tobacco: Never Assessed Sex and Gender Information Value Date Recorded Sex Assigned at Female 04/08/2021 11:57 PM CDT Gender Identity Not on file Sexual Orientation Not on file documented as of this encounter Progress Notes * Chidi Huerta M.D. - 12/29/2013 8:27 AM CDT Eye Postoperative MULTI-VISIT DOCUMENT This document contains multiple patient visits and is available for review in Document Viewer. CDM Reports - EYEPO Id: [id number] Status: Fnl documented in this encounter Plan of Treatment Not on file documented as of this encounter Visit Diagnoses Not on filedocumented in this encounter Additional Health Concerns Infection Onset Date Last Indicated Resolved Time COVID19 Pending 09/12/2020 09/12/2020 09/12/2020 7 :16 PM DENTAL OFFICE ASSISTANT COVID19 Pending 04/17/2022 04/17/2022 04/17/2022 6 :46 PM CDT Assessment Noted Time PHQ-9 Depression Total Score: 7 09/07/19 10 7:05 AM DENTAL OFFICE ASSISTANT documented as of this encounter Care Teams Extender Relationship Specialty Start Date End Date Elsewhere, Pcp PCP - General Internal Medicine 01/28/23 documented as of this encounter
--- NOTE | 2023-09-01 10:15 | CRLHL7_ITS ---
For Patients: As a result of the Century Cures Act, medical imaging exams and procedure reports are released immediately into your electronic medical record. You may view this report before your referring provider. If you have questions, please contact your health care provider. BILATERAL SCREENING MAMMOGRAM WITH COMPUTER-AIDED DETECTION AND TOMOSYNTHESIS TECHNIQUE: CC and MLO views were obtained. These mammographic images have been obtained using full-field digital technique. These mammographic images were interpreted with the benefit of computer-aided detection. Breast tomosynthesis was used in this interpretation. COMPARISON FILM: 06/03/22, 11/09/20, 08/19/19. FINDINGS: There are scattered areas of fibroglandular density. IMPRESSION: There is no radiographic evidence for malignancy. ASSESSMENT: BI-RADS Category 1: Negative RECOMMENDATION: Routine screening mammogram in 1 year. A lay language report of this examination will be provided to the patient. EDILBERTO VALDEZ M.D. Diagnostic Radiologist [email or web address] Transcribed: 2:[address]/Dictated by: Edilberto Valdez MD @ 09/01/2023 11:54:00 AM (Electronically Signed)
== END 2023-09-01 10:07 | disposition home or self-care (01) ==
LOC: MAMMO 10:09
PROVIDERS: PCP Internal Medicine; Visit Provider Internal Medicine
DX: Z12.31 Encounter for screening mammogram for malignant neoplasm of breast (principal)
CPT/HCPCS: 77063; 77067

== ENCOUNTER 2024-03-19 08:57 | Emergency (ER) | payer MEDICARE, BC, SELFPAY ==
[2024-03-19] VITALS (8 sets, daily range): BP systolic 172–183; BP diastolic 100–101; PULSE 74–88; RESP 20; TEMP 36.2; O2SAT 96–99
[2024-03-19 09:28] LABS: Basophils Absolute Auto 0.03 K/uL (0.00-0.30); Basophils Percent Auto 0.4 % (0.0-3.0); Eosinophils Absolute Auto 0.13 K/uL (0.00-0.50); Eosinophils Percent Auto 1.9 % (0.0-7.0); Hematocrit 36.5 % (33.0-51.0); Hemoglobin* 11.5 gm/dL (12.0-16.0); Immature Granulocytes Abs Auto 0.01 K/uL (0.00-0.30); Immature Granulocytes Pct Auto 0.1 %; Lymphocytes Absolute Auto 1.67 K/uL (0.90-2.90); Lymphocytes Percent Auto 24.2 % (20-44); Mean Corpuscular HGB Conc 32 gm/dL (32-36); Mean Corpuscular Hemoglobin 28 pg (26-34); Mean Corpuscular Volume 88 fL (80-100); Monocytes Percent Auto 6.7 % (0.0-11.0); Neutrophils Absolute Auto 4.59 K/uL (1.7-7.0); Neutrophils Percent Auto 66.7 % (42.0-72.0); Platelet Count* 393 K/uL (140-440); RDW Coefficient of Variation % 12.6 % (11.5-15.5); Red Blood Count 4.13 m/uL (4.00-5.20); White Blood Count* 6.89 K/uL (4.50-11.00)
[2024-03-19 09:30] LABS: Slide Review Reflex No
[2024-03-19 09:39] LABS: Chloride* 107 mmol/L (96-114); Potassium* 4.1 mmol/L (3.6-5.1); Sodium* 140 mmol/L (135-149)
--- NOTE | 2024-03-19 09:39 | ED.CHESTPAIN ---
HPI - Chest Pain General Chief Complaint: Chest Pain Stated Complaint: chest pain Time Seen by Provider: 03/19/24 09:22 History of Present Illness HPI narrative: This 78-year-old female comes in reporting some chest discomfort over the lower anterior ribs bilaterally. She states that this started almost 2 weeks ago. She does not report any nausea, vomiting, lightheadedness, shortness of breath, diaphoresis, or exercise intolerance. She reports that she did take a group of [place] students white water rafting and horseback riding just before this chest discomfort started. She also states that she loaded a snow throat or into a vehicle at that time. Her chest discomfort is reproducible with certain movements and taking deep breaths. She states she is otherwise in good health. Related Data Previous Rx's ?Medication ?Instructions ?Recorded zolpidem 5 mg tablet (Ambien) 5 mg PO .hs PRN insomnia #30 tabs 04/24/23 ketorolac 10 mg tablet 10 mg PO TID 5 days #15 tabs 03/19/24 Allergies Allergy/AdvReac Type Severity Reaction Status Date / Time No Known Drug Allergies Allergy Verified 04/24/23 10:15 Review of Systems Status of ROS Reports: 10 or more systems reviewed and unremarkable except as noted in History and below Narrative Constitutional: No fevers, no weight gain or loss. Eyes: No discharge. No vision changes. HENT: No congestion, no sore throat, no ear pain. Cardiovascular: No palpitations. Respiratory: No shortness of breath, no wheezes, no cough. Gastrointestinal: No abdominal pain, no vomiting, no diarrhea. Genitourinary: No dysuria, no hematuria. Musculoskeletal: Normal range of motion. Skin: No rashes, no pruritis. Neurological: No dizziness, weakness, sensory change, speech change. Endo/Heme/Allergies: No bruising or bleeding. No polydipsia. Pysch: no suicidality, no anxiety, no insomnia. All other systems reviewed and are negative. [facility] Medical History History of pulmonary embolism ?Z86.711 - Personal history of pulmonary embolism (ICD-10) Surgical History History of sinus surgery ?Z98.890 - Other specified postprocedural states (ICD-10) History of total bilateral knee replacement (2016) ?Z96.653 - Presence of artificial knee joint, bilateral (ICD-10) History of appendectomy ?Z90.49 - Acquired absence of other specified parts of digestive tract (ICD-10) History of reduction mammoplasty (~2013) ?Z98.890 - Other specified postprocedural states (ICD-10) History of cataract extraction ?Z98.49 - Cataract extraction status, unspecified eye (ICD-10) History of tonsillectomy ?Z90.89 - Acquired absence of other organs (ICD-10) History of cholecystectomy ?Z90.49 - Acquired absence of other specified parts of digestive tract (ICD-10) History of total abdominal hysterectomy and bilateral salpingo-oophorectomy ?Z90.710 - Acquired absence of both cervix and uterus (ICD-10) ?Z90.722 - Acquired absence of ovaries, bilateral (ICD-10) ?Z90.79 - Acquired absence of other genital organ(s) (ICD-10) Social History Narrative: SOCIAL HISTORY: The patient is in her 2nd marriage and has 2 children. She is currently retired. 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 She is a nonsmoker who quit smoking over 30 years ago. She has 2 alcoholic drinks weekly and 2 cups of caffeinated beverages daily. She is exercising multiple times 3x weekly. She is not sexually active. FAMILY HISTORY: Mother from hepatitis and liver cancer. Daughter with rhabdomyosarcoma and other cancer deaths in the family. Father from metastatic lung cancer. What is your current living situation?: I presently have a place to live Problems where you live: no known problems In the past 12 months, utilities in danger of being shut off: no In past 12 months, lack of transportation kept you from medical appts, meetings, work, or getting things needed for daily living: no In the past 12 mos, have been you worried that your food would run out before you had money to buy more?: never true In the past 12 mos, the food you bought just didn't last and you didn't have money to buy more?: never true Smoking Status: Never smoker Do you use any of these nicotine containing products: None How often do you have a drink containing alcohol: monthly or less Alcohol type: wine How often do you have six or more drinks on one occasion: Less than monthly AUDIT-C Alcohol total score: 2 Non-prescribed substance use: denies use Caffeine: Yes (coffee daily) How often does anyone, including family, friends and others, physically hurt you: never How often does anyone, including family, friends and others, insult or talk down to you: never How often does anyone, including family, friends and others, threaten you with harm: never How often does anyone, including family, friends and others, scream or curse at you: never Little interest or pleasure in doing things: not at all Feeling down, depressed, or hopeless: several days Are you using contraception or practicing any form of control: No Exam Narrative Exam Narrative: Constitutional: Well-developed, well-nourished, no acute distress. HEENT: Normocephalic, atraumatic. Neck: Normal range of motion. Nontender. Supple. Heart: Regular. No murmurs. Normal rate. Intact distal pulses. Lungs: Clear to auscultation. No wheezes, rhonchi, or rales. Chest: Pain is distinctly reproduced when taking a deep breath and with certain movements. Pain is located across the lower ribs anteriorly and bilaterally. Abdomen: Normal bowel sounds. Nontender. No rebound tenderness. Genitalia: Deferred. Back: No midline tenderness. Normal range of motion. Extremities: Normal range of motion. No injury. Skin: Intact. No rash. Warm. No erythema or pallor. Neurologic: No altered sensation. No weakness. Alert and oriented. Psychiatric: No suicidality. No anxiety or depression. No insomnia. Nursing notes and vitals signs are reviewed. Const Vital Signs, click to edit/add: Vital Signs - 24 hr 03/19/24 08:59 03/19/24 09:04 03/19/24 09:05 Temperature 97.1 F L Pulse Rate 85 88 Pulse Rate [Pulse Oximeter] 88 Respiratory Rate 20 Blood Pressure 183/101 H Blood Pressure [Left Upper Arm] 183/101 H Pulse Oximetry 98 98 99 Oxygen Delivery Method Room Air 03/19/24 09:06 03/19/24 09:15 03/19/24 09:15 Temperature Pulse Rate 84 76 Pulse Rate [Pulse Oximeter] Respiratory Rate Blood Pressure 172/100 H Blood Pressure [Left Upper Arm] Pulse Oximetry 99 99 98 Oxygen Delivery Method 03/19/24 09:30 03/19/24 09:45 03/19/24 10:00 Temperature Pulse Rate 79 74 80 Pulse Rate [Pulse Oximeter] Respiratory Rate Blood Pressure Blood Pressure [Left Upper Arm] Pulse Oximetry 96 99 97 Oxygen Delivery Method Course Vital Signs Vital signs: Initial Vital Signs Temperature 97.1 F L 03/19/24 08:59 Temperature Source Temporal Artery Scan 03/19/24 08:59 Pulse Rate 88 03/19/24 08:59 Respiratory Rate 20 03/19/24 08:59 Blood Pressure 183/101 H 03/19/24 08:59 Blood Pressure Mean 128 H 03/19/24 08:59 Blood Pressure Position Supine 03/19/24 08:59 Pulse Oximetry 98 03/19/24 08:59 Oxygen Delivery Method Room Air 03/19/24 08:59 Vital Signs Temperature 97.1 F L 03/19/24 08:59 Pulse Rate 88 03/19/24 08:59 Respiratory Rate 20 03/19/24 08:59 Blood Pressure 183/101 H 03/19/24 08:59 Pulse Oximetry 98 03/19/24 08:59 Oxygen Delivery Method Room Air 03/19/24 08:59 Temperature 97.1 F L 03/19/24 08:59 Pulse Rate 80 03/19/24 10:00 Respiratory Rate 20 03/19/24 08:59 Blood Pressure 172/100 H 03/19/24 09:06 Pulse Oximetry 97 03/19/24 10:00 Oxygen Delivery Method Room Air 03/19/24 08:59 MDM - Chest Pain MDM Narrative Medical decision making narrative: This patient comes in reporting some discomfort across her lower anterior chest. This pain is reproducible with certain movements and when taking deep breath. She was involved in some rather unusual and strenuous activities just prior to these pains that have now started. EKG and labs all returned with normal results. Her reproducible symptoms are typical of chest wall pain. The patient is okay to be discharged home. I did provide a prescription for Toradol. Lab Data Labs: Lab Results 03/19/24 03/19/24 Range/Units 09:14 09:15 WBC 6.89 (4.50-11.00) K/uL RBC 4.13 (4.00-5.20) m/uL Hgb 11.5 L (12.0-16.0) gm/dL Hct 36.5 (33.0-51.0) % MCV 88 (80-100) fL MCH 28 (26-34) pg MCHC 32 (32-36) gm/dL RDW Coeff of Michelle 12.6 (11.5-15.5) % Plt Count 393 (140-440) K/uL Neut % (Auto) 66.7 (42.0-72.0) % Lymph % (Auto) 24.2 (20-44) % Thomas % (Auto) 6.7 (0.0-11.0) % Eos % (Auto) 1.9 (0.0-7.0) % Baso % (Auto) 0.4 (0.0-3.0) % Neut # (Auto) 4.59 (1.7-7.0) K/uL Lymph # (Auto) 1.67 (0.90-2.90) K/uL Thomas # (Auto) 0.50 (0.00-0.90) K/UL Eos # (Auto) 0.13 (0.00-0.50) K/uL Baso # (Auto) 0.03 (0.00-0.30) K/uL Abs Immat Gran (auto) 0.01 (0.00-0.30) K/uL Imm/Tot Granulo (auto) 0.1 % Sodium 140 (135-149) mmol/L Potassium 4.1 (3.6-5.1) mmol/L Chloride 107 (96-114) mmol/L Carbon Dioxide 27 (20-32) mmol/L Anion Gap 6 L (7-15) mEq/L BUN 19 (7-30) mg/dL Creatinine 0.8 (0.5-1.5) mg/dL Estimated GFR 75 ml/min Glucose 99 (60-115) mg/dL Calcium 9.9 (8.4-10.6) mg/dL POC Troponin I 0.00 L (0.01-0.04) ng/ml ECG Data Attestation: I personally reviewed and interpreted this ECG as follows: Interpretation: Normal sinus rhythm. Rate is 86 beats per minute. There are no ST or T-wave abnormalities. Discharge Plan Discharge Clinical Impression: Chest wall pain Patient Disposition: Home, Self-Care Condition: Stable Additional Instructions: take medication as needed and indicated. Activity as tolerated. Follow up with MD return if worsening. Prescriptions: New ketorolac 10 mg tablet 10 mg PO TID 5 Days Qty: 15 0RF No Action zolpidem [Ambien] 5 mg tablet 5 mg PO .hs PRN (Reason: insomnia) Qty: 30 1RF Follow Up/Referrals: Latoya Seaman MD [Primary Care Provider] - Stand Alone Forms: [employer] Info Instructions
[2024-03-19 09:42] LABS: Anion Gap 6 mEq/L (7-15); Blood Urea Nitrogen* 19 mg/dL (7-30); Carbon Dioxide* 27 mmol/L (20-32); Creatinine* 0.8 mg/dL (0.5-1.5); Estimated Glomerular Filt Rate 75 ml/min
[2024-03-19 09:43] LABS: Calcium* 9.9 mg/dL (8.4-10.6); Glucose* 99 mg/dL (60-115)
--- OUTSIDE RECORDS SUMMARY | 2024-03-19 09:52 | XMS_ITS | Encounter Summary ---
Author Organization [facility] Address [address] [place] [address] Care Team Providers Care Major Account Manager Name Role Phone Elsewhere, Pcp Primary Care [...] significant #3 Refractive error (hyperopic astigmatism, presbyopia) [facility] Reports - EYEGEN Id: [id number] Status: Fnl documented in this encounter Plan of Treatment Not on file documented as of this encounter Visit Diagnoses Not on filedocumented in this encounter Additional Health Concerns Infection Onset Date Last Indicated Resolved Time COVID19 Pending 09/12/2020 09/12/2020 09/12/2020 7 :16 PM IMPLEMENTATION ARCHITECT COVID19 Pending 04/17/2022 04/17/2022 04/17/2022 6 :46 PM CDT Assessment Noted Time PHQ-9 Depression Total Score: 7 09/07/19 10 7:05 AM IMPLEMENTATION ARCHITECT documented as of this encounter Care Teams Major Account Manager Relationship Specialty Start Date End Date Elsewhere, Pcp PCP - General Internal Medicine 01/28/23 documented as of this encounter
--- OUTSIDE RECORDS SUMMARY | 2024-03-19 09:52 | XMS_ITS | Encounter Summary ---
Author Organization [facility] Address [address] [place] [address] Care Team Providers Care Special Education Curriculum Specialist Name Role Phone Elsewhere, Pcp Primary Care Provider Unavailabl e Encounter Details Date Type Department Care Team (Late st Contact Info) Description 12/31/2013 Historical Ophthalmology RST OPH Chidi Huerta M.D. [address] [place] [phone] Social History Tobacco Use Types Packs/Day Years [...] Document Viewer. CDM Reports - EYEPO Id: [id number] Status: Fnl documented in this encounter Plan of Treatment Not on file documented as of this encounter Visit Diagnoses Not on filedocumented in this encounter Additional Health Concerns Infection Onset Date Last Indicated Resolved Time COVID19 Pending 09/12/2020 09/12/2020 09/12/2020 7 :16 PM HAND BINDER CUTTER COVID19 Pending 04/17/2022 04/17/2022 04/17/2022 6 :46 PM CDT Assessment Noted Time PHQ-9 Depression Total Score: 7 09/07/19 10 7:05 AM HAND BINDER CUTTER documented as of this encounter Care Teams Special Education Curriculum Specialist Relationship Specialty Start Date End Date Elsewhere, Pcp PCP - General Internal Medicine 01/28/23 documented as of this encounter
--- OUTSIDE RECORDS SUMMARY | 2024-03-19 09:52 | XMS_ITS | Encounter Summary ---
Author Organization [facility] Address [address] [place] [address] Care Team Providers Care Watch Manufacturing Supervisor Name Role Phone Elsewhere, Pcp Primary Care Provider Unavailabl e Encounter Details Date Type Department Care Team (Late st Contact Info) Description 12/29/2013 Historical Ophthalmology RST OPH Jeremiah Tate, C.O.A. [address] [place] [phone] Social History Tobacco Use Types Packs/Day Years [...] cell Home: CDM Reports - EYESV Id: [id number] Status: Fnl documented in this encounter Plan of Treatment Not on file documented as of this encounter Visit Diagnoses Not on filedocumented in this encounter Additional Health Concerns Infection Onset Date Last Indicated Resolved Time COVID19 Pending 09/12/2020 09/12/2020 09/12/2020 7 :16 PM ASSOCIATE ATTORNEY COVID19 Pending 04/17/2022 04/17/2022 04/17/2022 6 :46 PM CDT Assessment Noted Time PHQ-9 Depression Total Score: 7 09/07/19 10 7:05 AM ASSOCIATE ATTORNEY documented as of this encounter Care Teams Watch Manufacturing Supervisor Relationship Specialty Start Date End Date Elsewhere, Pcp PCP - General Internal Medicine 01/28/23 documented as of this encounter
--- OUTSIDE RECORDS SUMMARY | 2024-03-19 09:52 | XMS_ITS | Encounter Summary ---
Author Organization [facility] Address [address] [place] [address] Care Team Providers Care Refuge Manager Name Role Phone Elsewhere, Pcp Primary Care Provider Unavailabl e Encounter Details Date Type Department Care Team (Late st Contact Info) Description 12/29/2013 Historical Ophthalmology RST OPH Chidi Huerta M.D. [address] [place] [phone] Social History Tobacco Use Types Packs/Day Years [...] Document Viewer. CDM Reports - EYEPO Id: [id number] Status: Fnl documented in this encounter Plan of Treatment Not on file documented as of this encounter Visit Diagnoses Not on filedocumented in this encounter Additional Health Concerns Infection Onset Date Last Indicated Resolved Time COVID19 Pending 09/12/2020 09/12/2020 09/12/2020 7 :16 PM TAXATION ACCOUNTANT COVID19 Pending 04/17/2022 04/17/2022 04/17/2022 6 :46 PM CDT Assessment Noted Time PHQ-9 Depression Total Score: 7 09/07/19 10 7:05 AM TAXATION ACCOUNTANT documented as of this encounter Care Teams Refuge Manager Relationship Specialty Start Date End Date Elsewhere, Pcp PCP - General Internal Medicine 01/28/23 documented as of this encounter
--- OUTSIDE RECORDS SUMMARY | 2024-03-19 09:52 | XMS_ITS | Encounter Summary ---
Author Organization [facility] Address [address] [place] [address] Care Team Providers Care Corn Detasseler Name Role Phone Elsewhere, Pcp Primary Care Provider Unavailabl e Encounter Details Date Type Department Care Team (Late st Contact Info) Description 11/12/2013 Historical Ophthalmology RST OPH Chidi Huerta M.D. [address] [place] [phone] Social History Tobacco Use Types Packs/Day Years [...] IOL scan CDM Reports - EYESV Id: [id number] Status: Fnl documented in this encounter Plan of Treatment Not on file documented as of this encounter Visit Diagnoses Not on filedocumented in this encounter Additional Health Concerns Infection Onset Date Last Indicated Resolved Time COVID19 Pending 09/12/2020 09/12/2020 09/12/2020 7 :16 PM GREY STOCK RECORDER COVID19 Pending 04/17/2022 04/17/2022 04/17/2022 6 :46 PM CDT Assessment Noted Time PHQ-9 Depression Total Score: 7 09/07/19 10 7:05 AM GREY STOCK RECORDER documented as of this encounter Care Teams Corn Detasseler Relationship Specialty Start Date End Date Elsewhere, Pcp PCP - General Internal Medicine 01/28/23 documented as of this encounter
--- OUTSIDE RECORDS SUMMARY | 2024-03-19 09:52 | XMS_ITS | Referral Summary ---
Author Organization [facility] Address [address] [place] [address] Care Team Providers Care Warehouse Shift Supervisor Name Role Phone Elsewhere, Pcp Primary Care Provider Unavailabl e Source Comments Patient records contain information from all sites at [facility]. For routine questions regarding patient records, call [phone] during business hours, M-F 8:00 AM - 5:00 PM Central Time. Record requests for emergency care only can be directed to [phone] at any time.[facility] Allergies No known active allergies Medications Medication Sig Dispensed Refills Start Date End Date Status zolpidem (AMBIEN) 5 mg tablet Take 5 mg by mouth as needed. 07/28/2020 Active lisinopril-hydroCHLORO thiazide (PRINZIDE,ZESTORETIC) 20-12.5 mg per tablet Take 1 tablet by mouth daily. 07/29/2020 Active ciprofloxacin (CIPRO) 500 mg tablet Take 500 mg by mouth as needed. 07/28/2020 Active atorvastatin (LIPITOR) 20 mg tablet Take 20 mg by mouth daily. 07/29/2020 Active UNABLE TO FIND 2 (two) times a day. 03/01/2016 Active calcium carbonate-vitamin D3 1,250 mg (500 mg calcium)-5 mcg (200 Unit) per tablet Take 1 tablet by mouth daily with breakfast. Active cetirizine (ZyrTEC) 10 mg tablet Take 10 mg by mouth as needed. 03/21/2022 Active Active Problems Problem Noted Date Diagnosed Date Polyp Colon 09/12/2020 Embolus Pulmonary Personal History 02/19/2016 Immunizations Name Administration Dates Next Due HZV (ZOSTAVAX) 10/07/2011 HepA / HepB 04/12/2003,03/15/2003 HepA Adult 06/21/2010 HepB Adult 06/21/2010 IPV 03/15/2003,03/12/2003 Influenza Split 07/10/2016, 5,05/02/2014,2012 MPSV4 06/21/2010,04/12/2003 PCV13 07/10/2016 PPSV23 09/30/2011 SARS-COV-2 (COVID-19) - PFIZ ER (Discontinued)(12 years or older) 09/29/2020 Tdap 05/11/2012,06/21/2010 TyVi [...] week 04/04/2022 How often do you attend [facility] or quaker services? 1 to 4 times per year 04/04/2022 Do you belong to any clubs o r organizations such as sabianism groups, unions, fraternal or athletic groups, or [...] Answer Date Recorded PHQ-2 Score 2 04/10/2022 [facility] - Occupational Stress Questionnaire Answer Date Recorded [...] place to sleep or slept in a fdc (including now)? No 04/04/2022 Depression Answer Date [...] Master's degree (e.g., MA, MS, Rian, MEd, FINANCIAL DATA ANALYST, RONALD) 04/04/2022 Sex and Gender Information Value Date Recorded Sex Assigned at Female 04/08/2021 11:57 PM CDT Gender Identity Not on file Sexual Orientation Not on file Last Filed Vital Signs Vital Sign Reading Time Taken Comments Blood Pressure 161/84 09/15/2020 3:50 PM RAMP MANAGER Pulse 81 09/15/2020 3:50 PM RAMP MANAGER Temperature 36.2 ??C (97.2 ??F) 04/10/2022 9:04 AM CD T Respiratory Rate 14 09/15/2020 3:50 PM RAMP MANAGER Oxygen Saturation 96% 09/15/2020 3:50 PM RAMP MANAGER Inhaled Oxygen Concentration - - Weight 80.4 kg (177 lb 4 oz) 04/10/2022 9:04 AM CDT Height 170.4 cm (5' 7.09) 04/10/2022 9:04 AM CD T Body Mass Index 27.69 04/10/2022 9:04 AM CDT Plan of Treatment Not on file Medical Devices Implanted Type Area Medical Coding Manager Device Identifier Shelf Expiration Date Model / Serial / Lot J J Sig Patella Oval 38 - [place] [id number] Implanted:Qty: 1 on 02/27/2016 Knee Implant Other/Legacy - See Implant Description [employer] Description:Device Manufactu rer - [employer]. Body Location - Other. Left. Device Status Text - [id number] [id number]. Sigma Post Stab.W Lug Fem Sz 4 Lt - [place] [id number] Implanted:Qty: 1 on 02/27/2016 Knee Implant Other/Legacy - See Implant Description [employer] Description:Device Manufactu rer - [employer]. Body Location - Other. Left. Device Status Text - [id number] [id number]. Depuy-Tib Tray Mod Cement Cocr Sz4 - [place] [id number] Implanted:Qty: 1 on 02/27/2016 Knee Implant Other/Legacy - See Implant Description [employer] Description:Device Manufactu rer - [employer]. Body Location - Other. Left. Device Status Text - KNEE [id number]. J J Sig Patella Oval 38 - [place] [id number] Implanted:Qty: 1 on 02/27/2016 Knee Implant Other/Legacy - See Implant Description [employer] Description:Device Manufactu rer - [employer]. Body Location - Other. Right. Device Status Text - [id number] [id number]. Depuy-Insert Stabilized Sz 4 10mm - [place] [id number] Implanted:Qty: 1 on 02/27/2016 Knee Implant Other/Legacy - See Implant Description [employer] Description:Device Manufactu rer - [employer]. Body Location - Other. Right. Device Status Text - [id number] [id number]. Depuy-Tib Tray Mod Cement Cocr Sz4 - [place] [id number] Implanted:Qty: 1 on 02/27/2016 Knee Implant Other/Legacy - See Implant Description [employer] Description:Device Manufactu rer - [employer]. Body Location - Other. Right. Device Status Text - KNEE [id number]. Depuy-Insert Stabilized Sz 4 10mm - [place] [id number] Implanted:Qty: 1 on 02/27/2016 Knee Implant Other/Legacy - See Implant Description [employer] Description:Device Manufactu rer - [employer]. Body Location - Other. Left. Device Status Text - [id number] [id number]. Sigma Post Stab.W Lug Fem Sz 4 Rt - [place] [id number] Implanted:Qty: 1 on 02/27/2016 Knee Implant Other/Legacy - See Implant Description [employer] Description:Device Manufactu rer - [employer]. Body Location - Other. Right. Device Status Text - [id number] [id number]. Lens Sergey 24.0d X 6.0mm - [place] [id number] Implanted:Qty: 1 on 12/03/2013 Ocular Lens Right: Other/Legacy - See Implant Description [employer] Description:Device Manufactu rer - [employer]. Body Location - Right. Device Status Text - [id number]. Lens Sergey 24.0d X 6.0mm - [place] [id number] Implanted:Qty: 1 on 12/31/2013 Ocular Lens Left: Other/Legacy - See Implant Description [employer] Description:Device Manufactu rer - [employer]. Body Location - Left. Device Status Text - [id number]. Procedures Procedure Name Priority Date/Time Associated Diagnosis Comments COLONOSCOPY Routine 09/15/2020 2:31 PM RAMP MANAGER Polyp Colon SODIUM, S/P Routine 09/12/2020 10:09 AM RAMP MANAGER Multis[facility] Testing Adult POTASSIUM, S/P Routine 09/12/2020 10:09 AM RAMP MANAGER [facility] Testing Adult CREATININE WITH EGFR, S/P Routine 09/12/2020 10:09 AM RAMP MANAGER [facility] Laboratory Testing Adult BI BREAST SCREENING BILATERAL Routine 09/05/2015 12:44 PM RAMP MANAGER from Last 3 Months or Most Recently Relevant to Health Maintenance Results * Sodium (09/12/2020 10:09 AM RAMP MANAGER) Sodium, S 140 135 - 145 mmol/L 09/12/2020 10:51 AM RAMP MANAGER DTL Blood (Blood, Venous) 09/12/2020 10:09 AM RAMP MANAGER 09/12/2020 10:20 AM RAMP MANAGER José Miguel Macedo M.D. LAB BLOOD ADD-ON [facility] [address] [place] [address], [facility] [place] [address] [place] [address] * Potassium (09/12/2020 10:09 AM RAMP MANAGER) Potassium, S 4.4 3.6 - 5.2 mmol/L 09/12/2020 10:51 AM RAMP MANAGER DTL Blood (Blood, Venous) 09/12/2020 10:09 AM RAMP MANAGER 09/12/2020 10:20 AM RAMP MANAGER José Miguel Macedo M.D. LAB BLOOD ADD-ON [facility] [address] [place], [place] [address] [place] [id number] * (ABNORMAL) Creatinine with Estimated GFR (09/12/2020 10:09 AM RAMP MANAGER) Creatinine 1.11(H) 0.59 - 1.04 mg/dL 09/12/2020 11:03 AM RAMP MANAGER DTL eGFR-Non Black/ 49(L) >=60 mL/min/BSA 09/12/2020 11:03 AM RAMP MANAGER DTL Comment: ----ADDITIONAL INFORMATION---- Estimated GFR calculated using the 2009 CKD_EPI creatinine equation. eGFR-Black/Afri can Montenegrin 57(L) >=60 mL/min/BSA 09/12/2020 11:03 AM RAMP MANAGER DTL Comment: ----ADDITIONAL INFORMATION---- Estimated GFR calculated using the 2009 CKD_EPI creatinine equation. Blood (Blood, Venous) 09/12/2020 10:09 AM RAMP MANAGER 09/12/2020 10:20 AM RAMP MANAGER José Miguel Macedo M.D. LAB BLOOD ADD-ON [facility] [address] [place] [address], [facility] [place] [address] [place] [address] * BI Breast Screening Bilateral (09/05/2015 12:44 PM RAMP MANAGER) Anatomical Region Laterality Modality Breast Bilateral Mammography 09/05/2015 12:4 4 PM RAMP MANAGER Impressions 09/05/2015 1:32 PM RAMP MANAGER Negative. RECOMMENDATION: Annual screening mammography. BI-RADS ASSESSMENT: 2: Benign. LETTER: L1/2S Electronically signed by: ?? Hyun Coles [id number] 05-Sep-2015 13:32 Narrative 09/05/2015 1:32 PM RAMP MANAGER 05-Sep-2015 12:44:00 ??Exam: Mammo Screen Bilat Indications: Screening Mammogram Breast Ca ORIGINAL REPORT - 05-Sep-2015 13:32:00 EXAM: Digital Screening Mammography Bilateral Computer-aided detection equipment was used during interpretation. COMPARISON: Prior exams were available for comparison. DENSITY: b. There are scattered areas of fibroglandular density. FINDINGS: Interval changes of breast reduction surgery since prior mammogram. Benign dystrophic calcification in the periareolar regions. No mammographic findings of malignancy. Procedure Note Hyun Coles M.B., Ch.B. - 11/06/2017 05-Sep-2015 12:44:00 Exam: Mammo Screen Bilat Indications: Screening Mammogram Breast Ca ORIGINAL REPORT - 05-Sep-2015 13:32:00 EXAM: Digital Screening Mammography Bilateral Computer-aided detection equipment was used during interpretation. COMPARISON: Prior exams were available for comparison. DENSITY: b. There are scattered areas of fibroglandular density. FINDINGS: Interval changes of breast reduction surgery since priormammogram. Benign dystrophic calcification in the periareolar regions. Nomammographic findings of malignancy. IMPRESSION: Negative. RECOMMENDATION: Annual screening mammography. BI-RADS ASSESSMENT: 2: Benign. LETTER: L1/2S Electronically signed by: Hyun Coles [id number] 05-Sep-2015 13:32 Steve Villalta M.D., Pharm.D. IMG BI PROCEDURES from Last 3 Months or Most Recently Relevant to Health Maintenance Care Teams Warehouse Shift Supervisor Relationship Specialty Start Date End Date Elsewhere, Pcp PCP - General Internal Medicine 01/28/23
--- OUTSIDE RECORDS SUMMARY | 2024-03-19 09:52 | XMS_ITS | Encounter Summary ---
Author Organization [facility] Address [address] [place] [address] Care Team Providers Care Mat Weaver Name Role Phone Elsewhere, Pcp Primary Care Provider Unavailabl e Encounter Details Date Type Department Care Team (Late st Contact Info) Description 11/08/2013 Historical Ophthalmology RST OPH Chidi Hureta M.D. [address] [place] [phone] Social History Tobacco Use Types Packs/Day Years [...] subconjunctival hemorrhages CDM Reports - EYEGEN Id: [id number] Status: Fnl documented in this encounter Plan of Treatment Not on file documented as of this encounter Visit Diagnoses Not on filedocumented in this encounter Additional Health Concerns Infection Onset Date Last Indicated Resolved Time COVID19 Pending 09/12/2020 09/12/2020 09/12/2020 7 :16 PM ENGAGEMENT ENGINEER COVID19 Pending 04/17/2022 04/17/2022 04/17/2022 6 :46 PM CDT Assessment Noted Time PHQ-9 Depression Total Score: 7 09/07/19 10 7:05 AM ENGAGEMENT ENGINEER documented as of this encounter Care Teams Mat Weaver Relationship Specialty Start Date End Date Elsewhere, Pcp PCP - General Internal Medicine 01/28/23 documented as of this encounter
--- OUTSIDE RECORDS SUMMARY | 2024-03-19 09:52 | XMS_ITS ---
Author Organization [facility] Address [address] [place] [address] Care Team Providers Care Home Care Physical Therapist Name Role Phone Unavailable Unavailable Unavailable Surgery Details Not on file Complications Check Surgery Details section. Procedure Estimated Blood Loss Check Surgery Details section. Procedure Findings Check Surgery Details section. Procedure Specimens Taken Check Surgery Details section.
--- OUTSIDE RECORDS SUMMARY | 2024-03-19 09:52 | XMS_ITS | Clinical Summary ---
Author Organization [facility] Address [place], [place] [address] Care Team Providers Care Fashion Supervisor Name Role Phone [facility] Primary Care Provider Unavail able Allergies Active [...] Comments Blood Pressure 159/84 07/28/2014 5:41 PM MIRROR DEPARTMENT SUPERVISOR Pulse 90 07/28/2014 5:41 PM MIRROR DEPARTMENT SUPERVISOR Temperature 37 ??C (98.6 ??F) 07/28/2014 5:41 PM MIRROR DEPARTMENT SUPERVISOR Respiratory Rate - - Oxygen Saturation 98% 07/28/2014 5:41 PM MIRROR DEPARTMENT SUPERVISOR Inhaled Oxygen Concentration - - Weight 78.9 kg (174 lb) 07/28/2014 5:41 PM MIRROR DEPARTMENT SUPERVISOR Height 168.9 cm (5' 6.5) 07/04/2014 11:39 AM CS T Body Mass Index 27.67 07/04/2014 11:39 AM MIRROR DEPARTMENT SUPERVISOR Plan of Treatment Health Maintenance Due Date Last Done Comments Depression screening for age 12+ 1957 BMI (ht and wt on same day) for age 18+ 12/22/1963 Hepatitis C screening for ag e 18-79 12/22/1963 DEXA/DXA scan for age 65+ 2010 Zoster (shingles) series for age 50+ (2 of 3) 12/02/2011 10/07/2011 Pneumococcal series for age 65+ (2 of 2 - PCV) 09/30/2012 09/30/2011 Tetanus booster 05/11/2022 05/11/2012, 06/21/2010 COVID-19 vaccine series ( season) 2023 Influenza for age 65+ 04/11/2024 05/11/2014 , 06/11/2011, 06/30/2010, Additional history exists Tdap Completed 05/11/2012, 06/21/2010 Care Teams Fashion Supervisor Relationship Specialty Start Date End Date Yeimy Mclaughlin PCP - General 06/05/16
--- OUTSIDE RECORDS SUMMARY | 2024-03-19 09:52 | XMS_ITS | Encounter Summary ---
Author Organization [facility] Address [address] [place] [address] Care Team Providers Care Color Developer Name Role Phone Elsewhere, Pcp Primary Care Provider Unavailabl e Encounter Details Date Type Department Care Team (Late st Contact Info) Description 11/08/2013 Historical Ophthalmology RST OPH [place] [address] [place] [phone] Social History Tobacco Use Types Packs/Day Years [...] DR. Huerta CDM Reports - EYESV Id: [id number] Status: Fnl documented in this encounter Plan of Treatment Not on file documented as of this encounter Visit Diagnoses Not on filedocumented in this encounter Additional Health Concerns Infection Onset Date Last Indicated Resolved Time COVID19 Pending 09/12/2020 09/12/2020 09/12/2020 7 :16 PM ASSISTANT ADMINISTRATOR COVID19 Pending 04/17/2022 04/17/2022 04/17/2022 6 :46 PM CDT Assessment Noted Time PHQ-9 Depression Total Score: 7 09/07/19 10 7:05 AM ASSISTANT ADMINISTRATOR documented as of this encounter Care Teams Color Developer Relationship Specialty Start Date End Date Elsewhere, Pcp PCP - General Internal Medicine 01/28/23 documented as of this encounter
--- OUTSIDE RECORDS SUMMARY | 2024-03-19 09:52 | XMS_ITS | Clinical Summary ---
Author Organization [facility] Address [address] [place] [address] Care Team Providers Care Cotton Wringer Name Role Phone Elsewhere, Pcp Primary Care Provider Unavailabl e Source Comments Patient records contain information from all sites at [facility]. For routine questions regarding patient records, call [phone] during business hours, M-F 8:00 AM - 5:00 PM Central Time. Record requests for emergency care only can be directed to [phone] at any time.[facility] Allergies No known active allergies Medications [...] with chronic depression Glaucoma Maternal Grandmother Tiffanie Ignacio Liver disease Mother Isatu Garner Lung cancer Mother Isatu Garner Liver Coronary artery disease Mother's Brother 1 [place] Mary Alcohol abuse Mother's Brother 2 steve Hernandez Coronary artery disease Paternal Grandfather Ron Hernandez Depression Sister Malinda Welch Psychiatric Sister Malinda Welch Bi-Polar/ Paran oid Schiphrenia Suicide Attempts Sister Malinda Welch Macular degeneration Neg Hx Relation Name Status Comments Brother Ammon Welch Daughter Hannah Latif Father Elmer Welch Maternal Grandfather Tiffanie Hernandez Maternal Grandmother Tiffanie Ignacio Mother Isatu Eganlland Mother's Brother 1 Horacio Mary Mother's Brother 2 Edsteve Hernandez Paternal Grandfather [...] week 04/04/2022 [facility]? 1 to 4 times per year 04/04/2022 Do you belong to any clubs o r organizations such as restoration groups, unions, fraternal or athletic groups, or [...] Answer Date Recorded PHQ-2 Score 2 04/10/2022 [facility] - Occupational [...] place to sleep or slept in a jail (including now)? No 04/04/2022 Depression Answer Date [...] Master's degree (e.g., MA, MS, Rian, MEd, COMPUTER OPERATIONS ANALYST, RONALD) 04/04/2022 Sex and Gender Information Value Date Recorded Sex Assigned at Female 04/08/2021 11:57 PM CDT Gender Identity Not on file Sexual Orientation Not on file Last Filed Vital Signs Vital Sign Reading Time Taken Comments Blood Pressure 161/84 09/15/2020 3:50 PM CARGO SERVICES COORDINATOR Pulse 81 09/15/2020 3:50 PM CARGO SERVICES COORDINATOR Temperature 36.2 ??C (97.2 ??F) 04/10/2022 9:04 AM CD T Respiratory Rate 14 09/15/2020 3:50 PM CARGO SERVICES COORDINATOR Oxygen Saturation 96% 09/15/2020 3:50 PM CARGO SERVICES COORDINATOR Inhaled Oxygen Concentration - - Weight 80.4 [...] Vaccine (2022-2 4 season) 2023 04/27/2022, 11/13/2021, 05/05/2021, Additional history exists Depression Screening (Annual PHQ-2) 08/11/2023 Fall Risk Screen (Annual) 08/11/2023 Influenza Vaccine (#1) 2024 , 04/27/2022, 05/05/2021, Additional history exists DTaP,Tdap,and Td Vaccines (4 - Td or Tdap) 04/29/2033 04/29/2023, 05/11/2012, 06/21/2010 Hepatitis A Vaccines Completed 06/21/2010, 04/12/2003, 03/15/2003 Mammogram Discontinued 09/05/2015, 09/12, 09/17/2010, Additional history exists Pneumococcal vaccine (65+ years) Completed 07/10/20, 09/30/2011 Hepatitis B Vaccines Completed 10/25/2016, 06/21/2010, 04/12/2003, Additional history exists Colonoscopy Discontinued 09/15/2020, 12/2020, 04/26/2014 (Performed elsewhere), Additional history exists Colonoscopy Discontinued 09/15/2020, 12/2020, 04/26/2014 (Performed elsewhere), Additional history exists Colorectal Cancer Screening Discontinued Colorectal Cancer Surveillance Discontinued CT Colonography Discontinued CT Colonography Discontinued Cologuard Discontinued FIT Discontinued Medical Devices Implanted Type Area Sales Agent Trading Stamps Device Identifier Shelf Expiration Date Model / Serial / Lot J J Sig Patella Oval 38 - Juarez [id number] Implanted:Qty: 1 on 02/27/2016 Knee Implant Other/Legacy - See Implant Description [employer] Description:Device Manufactu rer - [employer]. Body Location - Other. Left. Device Status Text - [id number] [id number]. Sigma Post Stab.W Lug Fem Sz 4 Lt - [place] [id number] Implanted:Qty: 1 on 02/27/2016 Knee Implant Other/Legacy - See Implant Description [employer] Description:Device Manufactu rer - [employer]. Body Location - Other. Left. Device Status Text - [id number] [id number]. Depuy-Tib Tray Mod Cement Cocr Sz4 - [place]arez [id number] Implanted:Qty: 1 on 02/27/2016 Knee Implant Other/Legacy - See Implant Description [employer] Description:Device Manufactu rer - [employer]. Body Location - Other. Left. Device Status Text - [id number] [id number]. J J Sig Patella Oval 38 - [place] [id number] Implanted:Qty: 1 on 02/27/2016 Knee Implant Other/Legacy - See Implant Description [employer] Description:Device Manufactu rer - [employer]. Body Location - Other. Right. Device Status Text - [id number] [id number]. Depuy-Insert Stabilized Sz 4 10mm - [place]arez [id number] Implanted:Qty: 1 on 02/27/2016 Knee Implant Other/Legacy - See Implant Description [employer] Description:Device Manufactu rer - [employer]. Body Location - Other. Right. Device Status Text - [id number] [id number]. Depuy-Tib Tray Mod Cement Cocr Sz4 - [place] [id number] Implanted:Qty: 1 on 02/27/2016 Knee Implant Other/Legacy - See Implant Description [employer] Description:Device Manufactu rer - [employer]. Body Location - Other. Right. Device Status Text - [id number] [id number]. Depuy-Insert Stabilized Sz 4 10mm - [place] [id number] Implanted:Qty: 1 on 02/27/2016 Knee Implant Other/Legacy - See Implant Description [employer] Description:Device Manufactu rer - [employer]. Body Location - Other. Left. Device Status Text - [id number] [id number]. Sigma Post Stab.W Lug Fem Sz 4 Rt - [place] [id number] Implanted:Qty: 1 on 02/27/2016 Knee Implant Other/Legacy - See Implant Description [employer] Description:Device Manufactu rer - [employer]. Body Location - Other. Right. Device Status Text - [id number] [id number]. Lens Sergey 24.0d X 6.0mm - [place]arez [id number] Implanted:Qty: 1 on 12/03/2013 Ocular Lens Right: Other/Legacy - See Implant Description [employer] Description:Device Manufactu rer - [employer]. Body Location - Right. Device Status Text - [id number]. Lens Sergey 24.0d X 6.0mm - [place]arez [id number] Implanted:Qty: 1 on 12/31/2013 Ocular Lens Left: Other/Legacy - See Implant Description [employer] Description:Device Manufactu rer - [employer]. Body Location - Left. Device Status Text - [id number]. Procedures Procedure Name Priority Date/Time Associated Diagnosis Comments COLONOSCOPY Routine 09/15/2020 2:31 PM CARGO SERVICES COORDINATOR Polyp Colon SODIUM, S/P Routine 09/12/2020 10:09 AM CARGO SERVICES COORDINATOR Multisystem Laboratory Testing Adult POTASSIUM, S/P Routine 09/12/2020 10:09 AM CARGO SERVICES COORDINATOR [facility] Laboratory Testing Adult CREATININE WITH EGFR, S/P Routine 09/12/2020 10:09 AM CARGO SERVICES COORDINATOR [facility] Laboratory Testing Adult BI BREAST SCREENING BILATERAL Routine 09/05/2015 12:44 PM CARGO SERVICES COORDINATOR from Last 3 Months or Most Recently Relevant to Health Maintenance Results * Sodium (09/12/2020 10:09 AM CARGO SERVICES COORDINATOR) Sodium, S 140 135 - 145 mmol/L 09/12/2020 10:51 AM CARGO SERVICES COORDINATOR DTL Blood (Blood, Venous) 09/12/2020 10:09 AM CARGO SERVICES COORDINATOR 09/12/2020 10:20 AM CARGO SERVICES COORDINATOR José Miguel Macedo M.D. LAB BLOOD ADD-ON Performing Organization Address City/[facility]/ZIP Co de Phone Number [facility] [address] [facility] [address] [place] [address] * Potassium (09/12/2020 10:09 AM CARGO SERVICES COORDINATOR) Potassium, S 4.4 3.6 - 5.2 mmol/L 09/12/2020 10:51 AM CARGO SERVICES COORDINATOR DTL Blood (Blood, Venous) 09/12/2020 10:09 AM CARGO SERVICES COORDINATOR 09/12/2020 10:20 AM CARGO SERVICES COORDINATOR José Miguel Macedo M.D. LAB BLOOD ADD-ON [facility] [address] [place], [place] [id number] [place] [address] [facility] [address] [place] [address] * (ABNORMAL) Creatinine with Estimated GFR (09/12/2020 10:09 AM CARGO SERVICES COORDINATOR) Creatinine 1.11(H) 0.59 - 1.04 mg/dL 09/12/2020 11:03 AM CARGO SERVICES COORDINATOR DTL eGFR-Non Black/ 49(L) >=60 mL/min/BSA 09/12/2020 11:03 AM CARGO SERVICES COORDINATOR DTL Comment: ----ADDITIONAL INFORMATION---- Estimated GFR calculated using the 2009 CKD_EPI creatinine equation. eGFR-Black/Afri can Polish 57(L) >=60 mL/min/BSA 09/12/2020 11:03 AM CARGO SERVICES COORDINATOR DTL Comment: ----ADDITIONAL INFORMATION---- Estimated GFR calculated using the 2009 CKD_EPI creatinine equation. Blood (Blood, Venous) 09/12/2020 10:09 AM CARGO SERVICES COORDINATOR 09/12/2020 10:20 AM CARGO SERVICES COORDINATOR José Miguel Macedo M.D. LAB BLOOD ADD-ON [facility] [address] [place] [address], [facility] [address] [place] [address] * BI Breast Screening Bilateral (09/05/2015 12:44 PM CARGO SERVICES COORDINATOR) Anatomical Region Laterality Modality Breast Bilateral Mammography 09/05/2015 12:4 4 PM CARGO SERVICES COORDINATOR Impressions 09/05/2015 1:32 PM CARGO SERVICES COORDINATOR Negative. RECOMMENDATION: Annual screening mammography. BI-RADS ASSESSMENT: 2: Benign. LETTER: L1/2S Electronically signed by: ?? Hyun Coles [id number] 05-Sep-2015 13:32 Narrative 09/05/2015 1:32 PM CARGO SERVICES COORDINATOR 05-Sep-2015 12:44:00 ??Exam: Mammo Screen Bilat Indications: [...] LETTER: L1/2S Electronically signed by: Hyun Coles [id number] 05-Sep-2015 13:32 Steve Villalta M.D., Pharm.D. IMG BI PROCEDURES from Last 3 Months or Most Recently Relevant to Health Maintenance Care Teams Cotton Wringer Relationship Specialty Start Date End Date Elsewhere, Pcp PCP - General Internal Medicine 01/28/23
== END 2024-03-19 10:19 | disposition home or self-care (01) ==
LOC: ED 09:50
PROVIDERS: Emergency Provider Emergency Medicine Emergency Medical Services; PCP Internal Medicine
DX: R07.89 Other chest pain (principal)
CPT/HCPCS: 36415; 80048; 84484; 85025; 93005; 94761; 99284

== ENCOUNTER 2025-06-23 16:10 | Emergency (ER) | payer MEDICARE, BC, SELFPAY ==
[2025-06-23] VITALS (27 sets, daily range): BP systolic 128–204; BP diastolic 69–105; PULSE 65–83; RESP 10–20; TEMP 36.7; O2SAT 95–100
--- OUTSIDE RECORDS SUMMARY | 2025-06-23 16:12 | XMS_ITS | Clinical Summary ---
Author Organization [facility] Address [address] [place] [address] Care Team Providers Care Diet Counselor Name Role Phone Pcp, No Primary Care Provider Unavailabl e Allergies Active Allergy Reactions Criticality Noted Date Comments Penicillins 10/13/2010 Medications ibuprofen (ADVIL; MOTRIN) 600 mg tablet Take 1 tablet by mouth 4 times daily if needed. Maximum of 3200 mg in 24 hours. 30 tablet 0 4 Active zolpidem (AMBIEN) 5 mg tablet Take 1 tablet by mouth at bedtime if needed for Sleep. 30 tablet 0 4 Active HYDROcodone-ac etaminophen, 5-325 mg, (NORCO) per tablet Take 1-2 tablets by mouth every 4 hours if needed for Pain. Max acetaminophen dose: 4000mg in 24 hrs. 30 tablet 0 4 Active ciprofloxacin (CIPRO) 500 mg tablet Can take for 2-3 days as needed for travelers diarrhea 20 tablet 0 4 Active zolpidem (AMBIEN) 5 mg tablet Take 1 tablet by mouth at bedtime if needed for Sleep. 30 tablet 0 4 Active escitalopram oxalate (LEXAPRO) 5 mg tablet Take 1 tablet by mouth once daily. 30 tablet 2 4 Active codeine-guaiFE Nesin (GUAIFENESIN AC) 10-100 mg/5 mL liquid Take 5 mL by mouth every 4 hours if needed for Cough. Max dose 60 mL per 24 hrs. 240 mL 0 12/18/201 4 Active Active Problems Problem Noted Date Diagnosed Date Knee osteoarthritis 07/01/2014 Diverticulosis of colon (without mention of hemo rrhage) 04/26/2014 Overview (04/26/2014): Colonoscopy 04/2014 severe diverticuli, no follow up needed Fibromyalgia 01/05/2014 S/P bilateral breast reduction 08/20/2012 Dysthymia 02/24/2012 Resolved Problems Problem Noted Date Diagnosed Date Resolved Date UTI (lower urinary tract infection) 04/09/2012 09/07/2013 Immunizations Immunization Administration Dates Next Due HepA-HepB (Twinrix) 04/12/2003,03/15/2003 [...] 0.6 oz pur e alcohol) occ wine Comments No Sex and Gender Information Value Date Recorded Sex Assigned at Not on file Legal Sex Female 5:58 AM CRM MANAGER Gender Identity Not on file Sexual Orientation Not on file Obstetrics History Last Filed Vital Signs Vital Sign Reading Time Taken Comments Blood Pressure 159/84 07/28/2014 5:41 PM CRM MANAGER Pulse 90 07/28/2014 5:41 PM CRM MANAGER Temperature 37 C (98.6 F) 07/28/2014 5:41 PM CRM MANAGER Respiratory Rate - - Oxygen Saturation 98% 07/28/2014 5:41 PM CRM MANAGER Inhaled Oxygen Concentration - - Weight 78.9 kg (174 lb) 07/28/2014 5:41 PM CRM MANAGER Height 168.9 cm (5' 6.5) 07/04/2014 11:39 AM CS T Body Mass Index 27.67 07/04/2014 11:39 AM CRM MANAGER Plan of Treatment Health Maintenance Due Date Last Done Comments Depression screening for age 12+ 1957 BMI (ht and wt on same day) for age 18+ 12/22/1963 Hepatitis C screening for age 18-79 12/22/1963 DEXA/DXA scan for age 65+ 2010 Zoster (shingles) series for age 50+ (2 of 3) 12/02/2011 10/07/2011 Pneumococcal series for age 50+ (2 of 2 - PCV) 09/30/2012 09/30/2011 RSV vaccine for adults or pr egnancy (1 - 1-dose 75+ series) 2020 Tetanus booster 05/11/2022 05/11/2012, 06/21/2010 Influenza Vaccine (#1) 2025 4, 06/11/2011, 06/30/2010 Hepatitis B series for 19+ Completed 06/21, 04/12/2003, 03/15/2003 Insurance [place] [id number] Care Teams Diet Counselor Relationship Specialty Start Date End Date Pcp, No . PCP - General 08/18/24
--- OUTSIDE RECORDS SUMMARY | 2025-06-23 16:12 | XMS_ITS | Clinical Summary ---
Author Organization [facility] Address [address] [facility] [place] [address] Care Team Providers Care Manager Registration Name Role Phone Unavailable Primary Care Provider Unavailabl e Source Comments [facility],non-owned Affiliates and Associated Physician Practices is amultiple site organization consisting of ambulatory clinics and hospital sitesin [place], [place] and [place]. This disclosure is being madepursuant to the Care Everywhere program and may not contain all information available regarding this patient. Last updated 18.[facility] Allergies No known active allergies Medications * Be aware that medications may not be up to date on this document. Alwaysverify current medications with the patient. ibuprofen (MOTRIN) 400 MG tablet Take 1 tablet by mouth every 4 hours as needed for Pain 20 tablet 01/31/2018 Active cyclobenzaprine (FLEXERIL) 10 MG tablet Take 1 tablet by mouth 3 times daily as needed for Muscle Spasms 15 tablet 01/31/2018 Active Social History Tobacco Use Types Packs/Day Years Used Date Smoking Tobacco: Never Smokeless Tobacco: Never Alcohol Use Standard Drinks/Week Comments Yes 0 (1 standard drink = 0.6 oz pur e alcohol) occassional Comments Unknown Sex and Gender Information Value Date Recorded Sex Assigned at Not on file Legal Sex Female 5:32 PM CDT Gender Identity Not on file Sexual Orientation Not on file Last Filed Vital Signs Vital Sign Reading Time Taken Comments Blood Pressure 181/89 01/31/2018 7:00 PM CDT Pulse 81 01/31/2018 7:00 PM CDT Temperature - - Respiratory Rate 15 01/31/2018 7:00 PM CDT Oxygen Saturation - - Inhaled Oxygen Concentration - - Weight 74.8 kg (165 lb) 01/31/2018 5:48 PM CDT Height 171.5 cm (5' 7.5) 01/31/2018 5:48 PM CDT Body Mass Index 25.46 01/31/2018 5:48 PM CDT Plan of Treatment Health Maintenance Due Date Last Done Comments BONE DENSITY TESTING 1945 DTAP/TDAP/TD VACCINES (1 - Tdap) 1964 PNEUMOCOCCAL VACCINE 50+ (1 of 1 - PCV) 12/22/1995 ZOSTER VACCINE (1 of 2) 12/22/1995 Respiratory Syncytial Virus (RSV) Vaccine Pt: or over 60 yrs (1 - 1-dose 75+ series) 2020 DEPRESSION SCREENING 08/11/2024 COVID-19 VACCINE (1 - 2023- season) 2025 INFLUENZA VACCINE (#1) 2025 4, 06/11/2011, 06/30/2010, Additional history exists HEPATITIS B VACCINE Aged Out No longe r eligible based on patient's age to complete this topic HIB VACCINE Aged Out No longer eligi ble based on patient's age to complete this topic HPV VACCINE Aged Out No longer eligi ble based on patient's age to complete this topic MENINGOCOCCAL (Group B) VACCINE SHARED DECISION-MAKING Aged Out No longer eligible based on patient's age to complete this topic MENINGOCOCCAL GROUPS A/C/Y/W VACCINE Aged Out No longer eligible based on patient's age to complete this topic Insurance [facility] [employer] MEDICARE [facility] Address: [facility] [id number] [place] [address]
--- NOTE | 2025-06-23 16:35 | CRLHL7_ITS ---
For Patients: As a result of the Century Cures Act, medical imaging exams and procedure reports are released immediately into your electronic medical record. You may view this report before your referring provider. If you have questions, please contact your health care provider. Indication: Chest pain Technique: Two views of the chest. Comparison: Chest x-ray May 10, 2023. Findings/Impression: No focal consolidation, pleural effusion, or pneumothorax. The cardiac silhouette is normal. Surgical clips in the right upper quadrant. Dictated by Everette Ruiz MD @ 06/23/2025 5:28:18 PM (Electronically Signed)
--- NOTE | 2025-06-23 16:40 | ED.GENADULT ---
HPI - General Adult General Date Seen: 06/23/25 Chief complaint: Chest Pain Stated complaint: chest pain, high blood pressure Time Seen by Provider: 06/23/25 16:24 Source: patient Mode of arrival: ambulatory Limitations: no limitations History of Present Illness HPI narrative: Patient is a 79-year-old female presenting to the emergency department for headache, chest pressure, hypertension. Patient states she knows she was having headache yesterday when she was on her way to have surgery for large amount of scar tissue in her abdomen from previous surgeries. When she got there she was hypertensive in the 220 systolic range in due to that they would not do the surgery. She was told to follow-up with her primary care provider who recommended she come to the emergency department she was also having some chest pressure. She was hoping is just musculoskeletal chest pain so she stayed at home but when it persisted to this afternoon she came to the emergency department. She states she has had issues with headaches before seems relatively similar to this 1 although Her current headache seems more persistent than her previous headaches. denies any vision changes, lightheadedness, dizziness, weakness, numbness, hearing changes. Has been taking some [id number] medication for headache without much improvement. She describes the chest pressure and has this pressure sensation the lesser for chest but has not gone away. She feels like it might have gotten a little bit worse today. She was seen in the emergency department a year ago for chest pain and that was diagnosed as chest wall pain. She states at that time she was much more tender than she is today. Also feels like she has some mild shortness of breath that is worse than her baseline. Does not have any other medications. Was previously diagnosed with hypertension and has previously been on lisinopril but was taken off it due to side effects. She has a blood pressure of 204/83 here in the emergency department and per chart review her blood pressures have been in the 170s over the past year. Denies abdominal pain, diarrhea, constipation. Related Data Previous Rx's ?Medication ?Instructions ?Recorded zolpidem 5 mg tablet (Ambien) 5 mg PO .hs PRN insomnia #30 tabs 04/24/23 Allergies Allergy/AdvReac Type Severity Reaction Status Date / Time No Known Drug Allergies Allergy Verified 06/23/25 18:28 Review of Systems Status of ROS: Reports: 10 or more systems reviewed and unremarkable except as noted in History and below [facility] Medical History History of pulmonary embolism ?Z86.711 - Personal history of pulmonary embolism (ICD-10) Surgical History History of sinus surgery ?Z98.890 - Other specified postprocedural states (ICD-10) History of total bilateral knee replacement (2015) ?Z96.653 - Presence of artificial knee joint, bilateral (ICD-10) History of appendectomy ?Z90.49 - Acquired absence of other specified parts of digestive tract (ICD-10) History of reduction mammoplasty (~2013) ?Z98.890 - Other specified postprocedural states (ICD-10) History of cataract extraction ?Z98.49 - Cataract extraction status, unspecified eye (ICD-10) History of tonsillectomy ?Z90.89 - Acquired absence of other organs (ICD-10) History of cholecystectomy ?Z90.49 - Acquired absence of other specified parts of digestive tract (ICD-10) History of total abdominal hysterectomy and bilateral salpingo-oophorectomy ?Z90.710 - Acquired absence of both cervix and uterus (ICD-10) ?Z90.722 - Acquired absence of ovaries, bilateral (ICD-10) ?Z90.79 - Acquired absence of other genital organ(s) (ICD-10) Social History Narrative: SOCIAL HISTORY: The patient is in her 2nd marriage and has 2 children. She is currently retired. 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 She is a nonsmoker who quit smoking over 30 years ago. She has 2 alcoholic drinks weekly and 2 cups of caffeinated beverages daily. She is exercising multiple times 3x weekly. She is not sexually active. FAMILY HISTORY: Mother from hepatitis and liver cancer. Daughter with rhabdomyosarcoma and other cancer deaths in the family. Father from metastatic lung cancer. What is your current living situation?: I presently have a place to live Problems where you live: declined to answer In the past 12 months, utilities in danger of being shut off: no In past 12 months, lack of transportation kept you from medical appts, meetings, work, or getting things needed for daily living: no In the past 12 mos, have been you worried that your food would run out before you had money to buy more?: never true In the past 12 mos, the food you bought just didn't last and you didn't have money to buy more?: never true Smoking Status: Never smoker Do you use any of these nicotine containing products: None How often do you have a drink containing alcohol: monthly or less Alcohol type: wine How often do you have six or more drinks on one occasion: Less than monthly AUDIT-C Alcohol total score: 2 Non-prescribed substance use: denies use Caffeine: Yes (coffee daily) How often does anyone, including family, friends and others, physically hurt you: never How often does anyone, including family, friends and others, insult or talk down to you: never How often does anyone, including family, friends and others, threaten you with harm: never How often does anyone, including family, friends and others, scream or curse at you: never Are you using contraception or practicing any form of control: No Exam Narrative: Exam Narrative: Const: Well-nourished, Well-developed, in mild distress Eyes: PERRL, no conjunctival injection, and symmetrical lids HENT: Atraumatic external nose and ears. Moist mucous membranes. Neck: Symmetric, trachea midline, No thyromegaly. CVS: RRR, No murmurs or gallops. Peripheral pulses 2+ and equal in all extremities RESP: Unlabored respiratory effort. Clear to auscultation bilaterally. GI: Nontender/Nondistended, No rebound or guarding. MSK:Extremities w/o deformity, Normal Active ROM , mild tenderness to palpation of chest which does not recreate chest pressure Skin: Warm, Dry. No rashes or lesions. Neuro: Normal Muscle tone, No focal neurological deficits. Psych: Awake, Alert, & Oriented x3. Appropriate mood and affect. Const: Vital Signs, click to edit/add: Vital Signs - 24 hr 06/23/25 16:12 06/23/25 17:12 06/23/25 17:15 Temperature 98.1 F Pulse Rate 80 78 Pulse Rate [Right Pulse Oximeter] 83 Respiratory Rate 18 Blood Pressure Blood Pressure [Ri ght Upper Arm] 204/83 H Pulse Oximetry 97 98 98 Oxygen Delivery Me thod Room Air 06/23/25 17:21 06/23/25 17:30 06/23/25 17:32 Temperature Pulse Rate 82 75 75 Pulse Rate [Right Pulse Oximeter] Respiratory Rate 20 14 13 Blood Pressure 172/82 H 145/74 H Blood Pressure [Ri ght Upper Arm] Pulse Oximetry 99 95 96 Oxygen Delivery Me thod 06/23/25 17:45 06/23/25 18:00 06/23/25 18:01 Temperature Pulse Rate 67 73 71 Pulse Rate [Right Pulse Oximeter] Respiratory Rate 15 10 L 15 Blood Pressure 153/75 H Blood Pressure [Ri ght Upper Arm] Pulse Oximetry 97 97 96 Oxygen Delivery Me thod 06/23/25 18:02 06/23/25 18:28 06/23/25 18:30 Temperature Pulse Rate 71 75 73 Pulse Rate [Right Pulse Oximeter] Respiratory Rate Blood Pressure Blood Pressure [Ri ght Upper Arm] Pulse Oximetry 97 99 99 Oxygen Delivery Me thod 06/23/25 18:33 06/23/25 18:45 06/23/25 19:00 Temperature Pulse Rate 72 70 74 Pulse Rate [Right Pulse Oximeter] Respiratory Rate 14 12 Blood Pressure 145/75 H Blood Pressure [Ri ght Upper Arm] Pulse Oximetry 100 100 98 Oxygen Delivery Me thod 06/23/25 19:02 06/23/25 19:15 06/23/25 19:30 Temperature Pulse Rate 69 71 67 Pulse Rate [Right Pulse Oximeter] Respiratory Rate Blood Pressure 150/73 H Blood Pressure [Ri ght Upper Arm] Pulse Oximetry 98 99 99 Oxygen Delivery Me thod 06/23/25 19:32 06/23/25 19:45 06/23/25 20:00 Temperature Pulse Rate 70 68 65 Pulse Rate [Right Pulse Oximeter] Respiratory Rate 10 L 13 13 Blood Pressure 128/105 H Blood Pressure [Ri ght Upper Arm] Pulse Oximetry 99 98 97 Oxygen Delivery Me thod 06/23/25 20:02 06/23/25 20:15 06/23/25 20:30 Temperature Pulse Rate 70 69 72 Pulse Rate [Right Pulse Oximeter] Respiratory Rate 15 15 14 Blood Pressure 128/78 Blood Pressure [Ri ght Upper Arm] Pulse Oximetry 96 98 96 Oxygen Delivery Me thod 06/23/25 20:32 06/23/25 20:33 06/23/25 20:45 Temperature Pulse Rate 68 71 74 Pulse Rate [Right Pulse Oximeter] Respiratory Rate 12 13 Blood Pressure 135/69 Blood Pressure [Ri ght Upper Arm] Pulse Oximetry 96 97 99 Oxygen Delivery Me thod Course Vital Signs Vital signs: Initial Vital Signs Temperature 98.1 F 06/23/25 16:12 Temperature Source Temporal Artery Scan 06/23/25 16:12 Pulse Rate 83 06/23/25 16:12 Pulse Rhythm Regular 06/23/25 16:12 Pulse Strength 3+ Normal 06/23/25 16:12 Respiratory Rate 18 06/23/25 16:12 Blood Pressure 204/83 H 06/23/25 16:12 Blood Pressure Mean 123 H 06/23/25 16:12 Blood Pressure Position Sitting 06/23/25 16:12 Pulse Oximetry 97 06/23/25 16:12 Oxygen Delivery Method Room Air 06/23/25 16:12 Vital Signs Temperature 98.1 F 06/23/25 16:12 Pulse Rate 83 06/23/25 16:12 Respiratory Rate 18 06/23/25 16:12 Blood Pressure 204/83 H 06/23/25 16:12 Pulse Oximetry 97 06/23/25 16:12 Oxygen Delivery Method Room Air 06/23/25 16:12 Temperature 98.1 F 06/23/25 16:12 Pulse Rate 74 06/23/25 20:45 Respiratory Rate 13 06/23/25 20:33 Blood Pressure 135/69 06/23/25 20:32 Pulse Oximetry 99 06/23/25 20:45 Oxygen Delivery Method Room Air 06/23/25 16:12 Medications Administered Medications: Discontinued Medications Generic Name Dose Route Start Last Admin Trade Name Freq PRN Reason Stop Dose Admin Diphenhydramine HCl 25 mg 06/23/25 16:35 06/23/25 17:17 Diphenhydramine 50 Mg/Ml Inj IVP 06/23/25 16:36 25 mg ONCE ONE Administration Lactated Ringer's 1,000 mls @ 1,000 mls/hr 06/23/25 16:35 06/23/25 20:00 Lactated Ringers 1000 Ml IV 06/23/25 17:34 Infused .Q1H ONE Infusion Metoclopramide HCl 10 mg 06/23/25 16:35 06/23/25 17:20 Metoclopramide Hcl 5 Mg/Ml Inj IVP 06/23/25 16:36 10 mg ONCE ONE Administration Medical Decision Making MDM Narrative Medical decision making narrative: patient is a 79-year-old female presenting to emergency department for concerns of high blood pressure, headache, chest pain. She does have a history of headaches and this 1 does seem slightly different though. Due to her age and to consider intracranial mass but will hold off on imaging until a migraine cocktail was ordered. I spoke to her about this and she does states she is feeling dehydrated today. His symptoms improved a migraine cocktail do not believe an emergent head CT is indicated at this time. She is having chest pain also. The differential diagnosis of chest pain is broad and includes common etiologies such as musculoskeletal strain, GERD, pneumonia, etc. More serious etiologies considered include PE, coronary artery disease, pneumothorax, aortic dissection, aortic aneurysm. Will do a D-dimer to look for signs of PE. EKG and troponin to look for signs of cardiac abnormalities. Chest x-ray work her friends signs of pneumonia and/or pneumothorax. She appears overall well I do not believe this is hypertensive emergency at this time. Will order CBC, BMP, magnesium, viral swabs also. Patient states her headache improved with the medication. I do not believe head imaging is necessary. Patient's lab work was not concerning other than an elevated D-dimer 1.25. EKG interpreted by myself shows no acute concerning abnormalities. Chest x-ray interpreted by myself the radiologist shows no acute concerning abnormalities. Repeat troponin within normal limits. CTA shows an area in the right middle lobe normal some mild bronchial wall thickening which could reflect a sequela of infectious versus inflammatory process. Considering the patient's having chest pain some mild shortness of breath along with her age I will treat her for pneumonia. On my review vital signs are stable throughout time in in the emergency department. Oximetry stayed in the mid to high 90s. 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 Blood pressure has improved and now is 135/75. I do not believe it is necessary to start on blood pressure medication in the emergency department. She will be discharged. She is agreeable to this plan. Antibiotics sent via [facility]. Lab Data Labs: Lab Results 11/06/23/25 06/23/25 Range/Units 16:35 17:05 17:08 WBC 5.42 (4.50-11.00) K/uL RBC 4.14 (4.00-5.20) m/uL Hgb 12.0 (12.0-16.0) gm/dL Hct 37.4 (33.0-51.0) % MCV 90 (80-100) fL MCH 29 (26-34) pg MCHC 32 (32-36) gm/dL RDW Coeff of Michelle 13.5 (11.5-15.5) % Plt Count 340 (140-440) K/uL Neut % (Auto) 60.3 (42.0-72.0) % Lymph % (Auto) 28.0 (20-44) % [place] % (Auto) 7.6 (0.0-11.0) % Eos % (Auto) 3.5 (0.0-7.0) % Baso % (Auto) 0.6 (0.0-3.0) % Neut # (Auto) 3.27 (1.7-7.0) K/uL Lymph # (Auto) 1.52 (0.90-2.90) K/uL [place] # (Auto) 0.40 (0.00-0.90) K/UL Eos # (Auto) 0.19 (0.00-0.50) K/uL Baso # (Auto) 0.03 (0.00-0.30) K/uL Abs Immat Gran (auto) 0.00 (0.00-0.30) K/uL Imm/Tot Granulo (auto) 0.0 % D-Dimer Quant (PE/DVT) 1.25 H (0.00-0.50) ug/ml Sodium 138 (135-149) mmol/L Potassium 4.1 (3.6-5.1) mmol/L Chloride 105 (96-114) mmol/L Carbon Dioxide 26 (20-32) mmol/L Anion Gap 7 (7-15) mEq/L BUN 19 (7-30) mg/dL Creatinine 0.9 (0.5-1.5) mg/dL Estimated GFR 65 ml/min Glucose 115 (60-115) mg/dL Calcium 9.8 (8.4-10.6) mg/dL Magnesium 2.1 (1.5-2.6) mg/dL SARS-CoV-2 (PCR) Negative SARS-CoV-2 (Negative) Influenza Type A (PCR) Negative PCR FLU A (Negative) Influenza Type B (PCR) Negative PCR FLU B (Negative) RSV (PCR) Negative PCR RSV (Negative) POC Troponin I 0.00 L (0.01-0.04) ng/ml 06/23/25 Range/Units 19:17 WBC (4.50-11.00) K/uL RBC (4.00-5.20) m/uL Hgb (12.0-16.0) gm/dL Hct (33.0-51.0) % MCV (80-100) fL MCH (26-34) pg MCHC (32-36) gm/dL RDW Coeff of Michelle (11.5-15.5) % Plt Count (140-440) K/uL Neut % (Auto) (42.0-72.0) % Lymph % (Auto) (20-44) % [place] % (Auto) (0.0-11.0) % Eos % (Auto) (0.0-7.0) % Baso % (Auto) (0.0-3.0) % Neut # (Auto) (1.7-7.0) K/uL Lymph # (Auto) (0.90-2.90) K/uL [place] # (Auto) (0.00-0.90) K/UL Eos # (Auto) (0.00-0.50) K/uL Baso # (Auto) (0.00-0.30) K/uL Abs Immat Gran (auto) (0.00-0.30) K/uL Imm/Tot Granulo (auto) % D-Dimer Quant (PE/DVT) (0.00-0.50) ug/ml Sodium (135-149) mmol/L Potassium (3.6-5.1) mmol/L Chloride (96-114) mmol/L Carbon Dioxide (20-32) mmol/L Anion Gap (7-15) mEq/L BUN (7-30) mg/dL Creatinine (0.5-1.5) mg/dL Estimated GFR ml/min Glucose (60-115) mg/dL Calcium (8.4-10.6) mg/dL Magnesium (1.5-2.6) mg/dL SARS-CoV-2 (PCR) (Negative) Influenza Type A (PCR) (Negative) Influenza Type B (PCR) (Negative) RSV (PCR) (Negative) POC Troponin I 0.00 L (0.01-0.04) ng/ml Imaging Data CTA chest: Attestation: I have reviewed the pertinent imaging results. Radiologist's impression: 1. No pulmonary embolism identified. 2. Mild clustered micronodularity of the right middle lobe in addition to mild bronchial wall thickening, findings which may reflect sequelae of mild nonspecific infectious/inflammatory process. Please note that all CT scans at this facility use dose modulation, iterative reconstruction, and/or weight-based dosing when appropriate to reduce radiation dose to as low as reasonably achievable. Dictated by Naveed Meza MD @ 06/23/2025 8:31:44 PM ECG Data Attestation: I personally reviewed and interpreted this ECG as follows: Prior ECG tracings: available for review Interpretation: Normal sinus rhythm with a rate of 85 beats per minute, normal intervals, normal axis, no ST or T-wave abnormalities. Appears similar previous EKG on file. Discharge Plan Discharge Clinical Impression: Essential hypertension, Atypical chest pain, Pneumonia Patient Disposition: Home, Self-Care Condition: Stable Instructions: Hypertension in the Older Adult (ED) Additional Instructions: I recommend following up with the primary care provider about your chest pain and your high blood pressure. 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 Return to emergency department for new or worsening symptoms. Prescriptions: No Action zolpidem [Ambien] 5 mg tablet 5 mg PO .hs PRN (Reason: insomnia) Qty: 30 1RF Follow Up/Referrals: Latoya Seaman MD [Primary Care Provider, Internal Medicine] Stand Alone Forms: [employer] Info Instructions
[2025-06-23 17:14] LABS: Hematocrit* 37.4 % (33.0-51.0); Hemoglobin* 12.0 gm/dL (12.0-16.0); Immature Granulocytes Abs Auto 0.00 K/uL (0.00-0.30); Immature Granulocytes Pct Auto 0.0 %; Lymphocytes Absolute Auto 1.52 K/uL (0.90-2.90); Mean Corpuscular HGB Conc 32 gm/dL (32-36); Mean Corpuscular Hemoglobin 29 pg (26-34); Mean Corpuscular Volume 90 fL (80-100); RDW Coefficient of Variation % 13.5 % (11.5-15.5); Red Blood Count* 4.14 m/uL (4.00-5.20); White Blood Count* 5.42 K/uL (4.50-11.00)
[2025-06-23] MEDS: LACTATED RINGERS 1000 ML 1,000 ML IV (17:16)
[2025-06-23] MEDS: METOCLOPRAMIDE HCL 5 MG/ML INJ 10 MG IVP (17:20)
[2025-06-23 17:21] LABS: Troponin, Point-of-Care* 0.00 ng/ml (0.01-0.04)
[2025-06-23 17:31] LABS: Slide Review Reflex No
[2025-06-23 17:34] LABS: Chloride* 105 mmol/L (96-114); Potassium* 4.1 mmol/L (3.6-5.1); Sodium* 138 mmol/L (135-149)
[2025-06-23 17:37] LABS: Anion Gap 7 mEq/L (7-15); Blood Urea Nitrogen* 19 mg/dL (7-30); Calcium* 9.8 mg/dL (8.4-10.6); Carbon Dioxide* 26 mmol/L (20-32); Creatinine* 0.9 mg/dL (0.5-1.5); Estimated Glomerular Filt Rate 65 ml/min; Glucose* 115 mg/dL (60-115)
[2025-06-23 17:40] LABS: D Dimer Quantitative* 1.25 ug/ml (0.00-0.50)
--- NOTE | 2025-06-23 17:49 | CRLHL7_ITS ---
For Patients: As a result of the Century Cures Act, medical imaging exams and procedure reports are released immediately into your electronic medical record. You may view this report before your referring provider. If you have questions, please contact your health care provider. INDICATION: Pulmonary embolism (PE) suspected, chest pain and shortness of breath. TECHNIQUE: CT chest PE was acquired with 95 cc Isovue 370 IV contrast. Multiplanar reformats performed including 3D MIP reconstructions. COMPARISON: Chest x-ray 06/23/2025, CTA chest 05/10/2023. FINDINGS: Heart and vasculature: No pulmonary embolism appreciated. Main pulmonary artery normal in caliber. No thoracic aortic aneurysm. No cardiomegaly or pericardial effusion. No CT evidence of right heart strain. Lungs and pleura: Bibasilar atelectasis. Mild clustered micronodularity at the right middle lobe. Mild centrilobular and paraseptal emphysema. No pleural effusion or pneumothorax. Patent central airways. Mild bronchial wall thickening. Lymph nodes/mediastinum: No suspicious lymphadenopathy. Calcified mediastinal and hilar lymph nodes likely reflect sequelae of prior granulomatous disease. Chest wall: No suspicious chest wall mass or fluid collection. No axillary lymphadenopathy. Upper abdomen: Calcified granulomas within the liver and spleen. No acute abnormality. Bones: No acute abnormality. IMPRESSION: 1. No pulmonary embolism identified. 2. Mild clustered micronodularity of the right middle lobe in addition to mild bronchial wall thickening, findings which may reflect sequelae of mild nonspecific infectious/inflammatory process. Please note that all CT scans at this facility use dose modulation, iterative reconstruction, and/or weight-based dosing when appropriate to reduce radiation dose to as low as reasonably achievable. Dictated by Naveed Meza MD @ 06/23/2025 8:31:44 PM (Electronically Signed)
[2025-06-23 17:52] LABS: PCR FLU A Negative PCR FLU A (Negative); PCR FLU B Negative PCR FLU B (Negative); PCR RSV Negative PCR RSV (Negative); SARS PCR* Negative SARS-CoV-2 (Negative)
[2025-06-23 19:49] LABS: Troponin, Point-of-Care* 0.00 ng/ml (0.01-0.04)
== END 2025-06-23 21:00 | disposition home or self-care (01) ==
PROVIDERS: Emergency Provider Student in an Organized Health Care Education/Training Program; PCP Internal Medicine
DX: J18.9 Pneumonia, unspecified organism (principal); R07.89 Other chest pain; I10 Essential (primary) hypertension
CPT/HCPCS: 36415; 71046; 71275; 80048; 83735; 84484; 85025; 85379; 87631; 93005; 96361; 96374; 96375; 99284; 99285; J1200; J2765; J7120; Q9967